=== PATIENT | male | born 1935 | race Caucasian/White ===

== ENCOUNTER → 2016-11-14 | Outpatient (CLI) | payer OTHER ==
[~2016-11-14] MED LIST: ALLO300T2 PO; ASPCH81X PO; BRIM0.2S OPB; CALC-354 PO; CHOL1TAB18 PO; CYAN10005 PO; ENOX80IN SQ; FISHOIL PO; GABA600T PO; LEVO175T3 PO; LORA-741 PO; LOSA1TAB PO; METO1TAB31 PO; OMEP20CA9 PO; SIMV20TA5 PO; TRAV0.00 OPB; WARF5TAB7 PO
== END | disposition home or self-care (01) ==
LOC: C.LABPBG 08:04
PROVIDERS: ATTEND Urology
DX: C61 Malignant neoplasm of prostate (principal); R35.0 Frequency of micturition; R39.15 Urgency of urination

== ENCOUNTER → 2016-12-22 | Outpatient (CLI) | payer OTHER ==
[~2016-12-22] MED LIST changes: +METO-478 PO; -METO1TAB31 PO; +OPTIRAY 320 IV PRN
--- NOTE | 2016-12-22 16:13 | DIAGNOSTIC IMAGING REPORT ---
(CHEST) THORAX WITH CT DOSE: HISTORY: Lymphoma LYMPHOMA TECHNIQUE: Multiaxial CT images of the chest were performed following the intravenous administration of contrast. A dose lowering technique was utilized adhering to the principles of ALARA. COMPARISON: PET scan 01/18/2014 FINDINGS: Mild chronic emphysematous and interstitial change. No well-defined focal infiltrative change. Moderate atherosclerotic change and ectasia thoracic aorta. No significant hilar or mediastinal adenopathy. Small hiatal hernia. Fatty infiltration of liver. IMPRESSION: 1. Chronic emphysematous and interstitial change. 2. No evidence for significant adenopathy. The above report was generated using voice recognition software. It may contain grammatical, syntax or spelling errors. Electronically signed by: Mehran Mi M.D. 12/22/2016 4:12 PM Dictated Date/Time: 12/22/2016 4:09 PM
--- NOTE | 2016-12-22 16:51 | DIAGNOSTIC IMAGING REPORT ---
CT SCAN OF THE ABDOMEN AND PELVIS WITH IV CONTRAST CLINICAL HISTORY: Lymphoma. COMPARISON STUDY: PET/CT dated 01/18/2014. TECHNIQUE: Following the IV administration of 116 cc of Optiray 320, CT scan of the abdomen and pelvis is performed from the lung bases to the proximal femora. Images are reviewed in the axial, sagittal, and coronal planes. IV contrast was administered without complication. A dose lowering technique was utilized adhering to the principles of ALARA. CT DOSE: 836.04 mGy.cm FINDINGS: Lung bases: The heart is top normal in size and without pericardial effusion. The coronary arteries are densely calcified. Atelectasis and/or scarring is present at both lung bases. There is no airspace consolidation or pleural effusion. There is a moderate hiatal hernia. Liver: The contrast-enhanced liver is normal in size, contour, and attenuation. There is mild intra and extrahepatic biliary ductal dilatation. The hepatic veins and portal veins are patent. Gallbladder: Surgically absent noting clips in the gallbladder fossa. Spleen: Normal in size and attenuation, measuring 9.1 cm in length. Pancreas: Coarse calcifications are noted in the pancreatic tail, and similar to the 2014 examination. The pancreas is atrophic and otherwise grossly unremarkable. Adrenal glands: Unremarkable. Kidneys: The contrast enhanced kidneys are atrophic and without hydronephrosis. The kidneys enhance symmetrically. There are at least 2 right renal calculi measuring up to 4 mm. Foci of cortical scarring are seen in the right upper pole. Bilateral renal cysts are identified. The largest is on the left and measures up to 5.6 cm. Additional subcentimeter cortical hypodensities also likely represent cysts but are too small for definitive catheterization. Abdominal vasculature: There is advanced atherosclerotic calcification of the abdominal aorta. 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 Bowel: There is mild to moderate sigmoid diverticulosis without CT evidence of acute diverticulitis. No bowel obstruction is seen. The appendix is well-visualized and normal. Peritoneum: There is no intraperitoneal free air or abdominal ascites. There is a small fat-containing umbilical hernia. Lymphadenopathy: No pathologically enlarged lymph nodes are identified in the abdomen, pelvis, or inguinal region. Prominent mesenteric lymph nodes measure up to 9 mm in short axis as seen on image #[id number]. These have not significantly changed from 2014. Pelvic viscera: The prostate gland is surgically absent. The bladder is normal as imaged. Findings suggest previous pelvic kendy dissection. Skeletal structures: The skeletal structures are osteopenic. There are bilateral pars defects at L5 with grade 1 anterolisthesis at L5-S1. There is advanced degenerative disc space narrowing at this level. Mild to moderate lumbar sacral spondylosis is seen at the remaining levels. No lytic or blastic lesions are seen. IMPRESSION: 1. No pathologically enlarged lymph nodes are identified in the abdomen or pelvis. 2. The spleen is normal in size. 3. Nonobstructing right renal calculi. 4. Colonic diverticulosis without CT evidence of acute diverticulitis. 5. Hiatal hernia. 6. Nonobstructing right renal calculi. 7. Additional findings as above. Electronically signed by: Shai Boateng M.D. 12/22/2016 4:50 PM Dictated Date/Time: 12/22/2016 4:42 PM
== END | disposition home or self-care (01) ==
LOC: C.CTS 15:39
PROVIDERS: ATTEND Nurse Practitioner Family
DX: C82.21 Follicular lymphoma grade III, unspecified, lymph nodes of head, face, and neck (principal)

== ENCOUNTER 2020-10-25 19:10 | Inpatient (IN) ==
--- NOTE | 2020-10-25 20:37 | XRay Report ---
XR chest 1V portable HISTORY: 85 years-old Male weakness acute weakness COMPARISON: Chest CT 12/22/2016, PET CT 01/18/2014, chest radiograph 09/12/2013 TECHNIQUE: Portable AP view of the chest FINDINGS: Cardiac silhouette is enlarged. Emphysema. Mild left greater than right bibasilar densities. No pneum othorax, large pleural effusion or overt pulmonary edema. Cholecystectomy. Degenerative changes of th e shoulders and spine. IMPRESSION: 1. Cardiac megaly without pulmonary edema. 2. Mild linear left greater than right bibasilar densities suggestive of probable atelectasis. ACT 112: Negative or not required by law. The above report was generated using voice recognition software. It may contain grammatical, syntax o r spelling errors. Electronically signed by: Jean-Claude Rojas M.D. 10/25/2020 8:36 PM
[2020-10-25 20:48] LABS: Basophils # (auto) 0.01 K/uL (0-0.2); Basophils % (auto) 0.1 %; Eosinophils # (auto) 0.12 K/uL (0-0.5); Eosinophils % (auto) 1.6 %; Hematocrit (blood only) 35.9 % (42-52); Hemoglobin 12.5 g/dL (14.0-18.0); Immature Granulocytes # (auto) 0.01 K/uL (0.00-0.02); Immature Granulocytes % (auto) 0.1 %; Lymphocytes # (auto) 2.31 K/uL (1.2-3.4); Lymphocytes % (auto) 30.7 %; Mean Corpuscular Hemoglobin 34.3 pg (25-34); Mean Corpuscular Hgb Conc 34.8 g/dL (32-36); Mean Corpuscular Volume 98.6 fL (80-100); Mean Platelet Volume 10.5 fL (7.4-10.4); Monocytes # (auto) 0.73 K/uL (0.11-0.59); Monocytes % (auto) 9.7 %; Neutrophils # (auto) 4.34 K/uL (1.4-6.5); Neutrophils % (auto) 57.8 %; Platelet Count 194 K/uL (130-400); RDW Standard Deviation 49.9 fL (36.4-46.3); Red Blood Count 3.64 M/uL (4.7-6.1); White Blood Count 7.52 K/uL (4.8-10.8)
[2020-10-25 21:00] LABS: Albumin Level 3.3 gm/dl (3.4-5.0); BUN Creatinine Ratio 16.8 (10-20); Calcium 8.9 mg/dl (8.5-10.1); Creatinine Clr Calc Pharmacy 43.2 ml/min; Est GFR (African American) 61.8 ml/min; Est GFR (Non-African American) 53.4 ml/min
[2020-10-25 21:09] LABS: Bilirubin,Total 0.5 mg/dl (0.2-1); Globulin 3.2 gm/dl (2.5-4.0); Thyroid Stimulating Hormone 0.415 uIu/ml (0.300-4.500); Total Protein 6.5 gm/dl (6.4-8.2)
--- NOTE | 2020-10-25 21:11 | CT Scan Report ---
CT head/brain wo con CLINICAL HISTORY: 85 years-old Male with Fall, on coumadin. Acute head injury status post fall TECHNIQUE: Multiple axial CT images of the head were obtained without contrast. A dose lowering tech nique was utilized adhering to the principles of ALARA. CT DOSE: 537.48 mGy.cm COMPARISON: None. FINDINGS: No acute intracranial hemorrhage, midline shift, intracranial mass, hydrocephalus, territorial ischem ia or abnormal extra-axial collection. Age-related involutional changes. White matter hypodensities s uggestive of chronic microvascular ischemic disease. Cerebral vascular calcifications. Senescent calc ifications of the basal ganglia. No acute calvarial fracture. Postoperative changes of the left lobe. Large left and small right mast oid effusion. The paranasal sinuses appear clear. Prior bilateral cataract repair. IMPRESSION: 1. No acute intracranial abnormality. 2. Left greater than right mastoid effusions. ACT 112: Negative or not required by law. The above report was generated using voice recognition software. It may contain grammatical, syntax o r spelling errors. Electronically signed by: Jean-Claude Rojas M.D. 10/25/2020 9:10 PM
[2020-10-25 21:25] LABS: Appearance Urine Clear (Clear); Bacteria Urine Automated Negative (Negative); Bilirubin Urine Negative (Negative); Blood Urine Trace (Negative); Cast Urine Automated 0 /lpf (0-5); Color Urine Yellow; Glucose Urine UA Negative (Negative); Ketones Urine Negative (Negative); Leukocyte Esterase Urine Negative (Negative); Nitrite Urine Negative (Negative); Protein Urine Negative (Negative); RBC Urine Automated 0-4 /hpf (0-4); Specific Gravity Urine 1.017 (1.000-1.030); Urobilinogen Urine Negative (Negative)
[2020-10-25 22:00] LABS: Potassium 3.9 mmol/L (3.5-5.1)
[2020-10-25 22:05] LABS: Magnesium 1.7 mg/dl (1.8-2.4)
[2020-10-25] MEDS ORDERED: METOPROLOL SUCC 25MG EXT REL TAB PO STA (22:07)
--- NOTE | 2020-10-25 22:13 | Emergency Department Note ---
Impression & Plan Confusion, Hallucinations, Lewy body dementia, Fall, Anticoagulated, Contusion of flank ED Provider Note INFORMANT: Patient, family ED PROVIDER(S): Emanuel Rivera MD CHIEF COMPLAINT: Falls PLAN: Disposition: Admitted Condition: Good Outpatient prescription management: none Referral: None MEDICAL DECISION MAKING: Patient has presented because of multiple falls. Family does not believe he is safe at home. He is also had increased confusion and hallucinations. A work-up was initiated. Head CT was negative. The patient had an unremarkable ECG. CT scan did reveal some fluid in the mastoids but no sign of intracranial bleeding. The patient is anticoagulated. CBC and chemistries are unremarkable. Chest x- ray and urinalysis were unremarkable. The patient denied any pain on history and physical examination only revealed a left flank bruising. He had no tenderness in the abdomen, ribs, or in the flank. Due to the multiple falls and concerns for safety with the change in mental status further management in the hospital was felt to be appropriate. Consultation was made with Dr. Fred Barrios, [facility] hospitalist service. Triage Nursing notes reviewed and agree them. Vital Signs: reviewed and remarkable for no significant abnormalities Differential diagnosis: Infection, hypoglycemia, electrolyte abnormalities, overdose, toxicologic, cardiac sources, intracerebral event, neurologic, trauma, as well as other pathologies. Diagnostics interpreted by me: ECG: Twelve-lead ECG revealed normal sinus rhythm at 75 bpm. Left anterior fascicular block present. LVH. No ST elevation or depression. Cardiac Monitoring: Cardiac monitoring ordered by me: The patient was placed on continuous cardiac monitoring and observed. It revealed a normal sinus rhythm at 86 beats per minute without ectopy or evidence of dysrhythmia. Imaging studies: Head CT: A noncontrast CT scan of the head was performed and was negative for tumor, fracture, intracranial hemorrhage, or other acute pathology Chest x-ray. Findings: A chest x-ray was performed and revealed no pneumothorax, effusion, infiltrate, pulmonary edema, free air under the diaphragm, or wide mediastinum. Impression: No acute disease.. HPI: The patient is a 85 year old male who presents to the Emergency Room with complaints of multiple falls. Family also notes he has been having confusion and hallucinating. This started over the last several days and is recurring. The patient also notes the following associated symptoms, mild weakness, a bruise on his left flank but no pain. The patient has taken no medication for relieving factors. Current pain is rated as 0/10. Patient's and family are concerned about his ability to be at home. He keeps falling. He had several falls today. The patient has a history of Lewy body dementia. He has had problems with confusion and hallucinations in the past. It seems to be more pronounced today. Pt denies LOC, headache, fevers, chills, diaphoresis, visual changes, neck pain, chest pain, breathing difficulties, nausea, vomiting, abdominal pain, back pain, melena, hematochezia, urinary symptoms, numbness, lymphadenopathy, rash, or other complaints. ROS: See above HPI for pertinent positives & negatives. A total of 10 systems reviewed and were otherwise negative. PAST MEDICAL HISTORY:See Below , Lewy body dementia, lymphoma, A. fib PAST SURGICAL HISTORY:See Below, FAMILY HISTORY:See Below SOCIAL HISTORY:See Below, HOME MEDICATIONS:See Below ALLERGIES:See Below VITALS:See Below PHYSICAL EXAMINATION: GENERAL: Awake, alert, iyn-heoouabcrqk-gfjaqzgnl, in no distress HENT: Normocephalic, atraumatic. Oropharynx unremarkable. EYES: Normal conjunctiva. Sclera non-icteric. NECK: Inspection normal. Non-tender. Supple. No nuchal rigidity. FROM. No masses. RESPIRATORY: Clear to auscultation. No wheezes. No rales. Normal respiratory effort. CARDIAC: Normal rate. Normal rhythm. No murmurs. No rubs. Extremities warm and well perfused. Pulses equal. No JVD. GI: Soft, non-distended. No tenderness to palpation. No rebound or guarding. No masses. RECTAL: Deferred. MUSCULOSKELETAL: Atraumatic. Chest examination reveals no tenderness. The back is symmetrical on inspection without obvious abnormality. There is no CVA tenderness to palpation. No joint edema. LOWER EXTREMITIES: Calves are equal size bilaterally and non-tender. No edema. No discoloration. NEURO: Normal sensorium. No sensory or motor deficits noted. SKIN: No rash or jaundice noted. Emnauel Rivera MD Past Med/Surg History Social History Smoking Status: Never smoker Preferred Language: Rw[place] Feels Safe at Home: Yes Allergies Allergies Allergy/AdvReac Type Severity Reaction Status Date / Time Sulfa (Sulfonamide Allergy Mild RASH TO Verified 10/25/20 21:25 Antibiotics) "SULFA DRUGS" Home Meds Home Medications Medication Instructions Recorded Confirmed allopurinol 100 mg tablet 100 mg PO DAILY 10/25/20 10/25/20 allopurinol 300 mg tablet 300 mg PO DAILY 10/25/20 10/25/20 brimonidine 0.2 %-timolol 0.5 % 1 drp OPHTHALMIC (EYE) BID 10/25/20 10/25/20 eye drops (Combigan) gabapentin 600 mg tablet 600 mg PO TID 10/25/20 10/25/20 levetiracetam 500 mg tablet 500 mg PO BID 10/25/20 10/25/20 levothyroxine 175 mcg tablet 175 mcg PO DAILYBB 10/25/20 10/25/20 metoprolol succinate 25 mg 25 mg PO DAILY 10/25/20 10/25/20 tablet,extended release 24 hr omeprazole 20 mg capsule,delayed 20 mg PO DAILYBB 10/25/20 10/25/20 release sertraline 50 mg tablet 50 mg PO DAILY 10/25/20 10/25/20 simvastatin 20 mg tablet 20 mg PO HS 10/25/20 10/25/20 travoprost 0.004 % eye drops 1 drp OPB PM 10/25/20 10/25/20 (Travatan Z) warfarin 3 mg tablet See Rx Instructions .ROUTE .COMPLEX 10/25/20 10/25/20 Results & Data (ED) Vital Signs Vital Signs - 24 hr 10/25/20 19:43 10/25/20 21:06 10/25/20 21:50 Temperature 37.2 C Temperature Source Oral Pulse Rate 76 Pulse Rate [Brachial] 79 86 Respiratory Rate 24 20 20 Blood Pressure 131/68 Blood Pressure [Right Arm] 171/75 H 142/76 H Blood Pressure Mean 89 Blood Pressure Mean [Right Arm] 107 98 Pulse Oximetry 96 96 98 Oxygen Delivery Method Room Air Room Air Room Air Sepsis Recent Fever Within 48 Hours No Sepsis New/Unexplained Change in Mental Status Yes Sepsis Action Taken by Nursing No Action Required Laboratory Data Result diagrams: 10/25/20 18:45 10/25/20 21:26 Lab Results 10/25/20 10/25/20 10/25/20 Range/Units 18:45 18:45 18:45 WBC 7.52 (4.8-10.8) K/uL RBC 3.64 L (4.7-6.1) M/uL Hgb 12.5 L (14.0-18.0) g/dL Hct 35.9 L (42-52) % MCV 98.6 (80-100) fL MCH 34.3 H (25-34) pg MCHC 34.8 (32-36) g/dL RDW Std Deviation 49.9 H (36.4-46.3) fL RDW Coeff of Kimberly 14.0 (11.5-14.5) % Plt Count 194 (130-400) K/uL MPV 10.5 H (7.4-10.4) fL Immature Gran % (Auto) 0.1 % Neut % (Auto) 57.8 % Lymph % (Auto) 30.7 % Monona % (Auto) 9.7 % Eos % (Auto) 1.6 % Baso % (Auto) 0.1 % Neut # (Auto) 4.34 (1.4-6.5) K/uL Lymph # (Auto) 2.31 (1.2-3.4) K/uL Monona # (Auto) 0.73 H (0.11-0.59) K/uL Eos # (Auto) 0.12 (0-0.5) K/uL Baso # (Auto) 0.01 (0-0.2) K/uL Immature Gran # (Auto) 0.01 (0.00-0.02) K/uL PT 28.0 H (9.0-12.0) Seconds INR 3.0 H (0.9-1.1) Sodium 138 (136-145) mmol/L Potassium (3.5-5.1) mmol/L Chloride 107 (98-107) mmol/L Carbon Dioxide 26 (21-32) mmol/L Anion Gap 5.0 (3-11) BUN 21 H (7-18) mg/dl Creatinine 1.22 (0.6-1.4) mg/dl Est Cr Clr Drug Dosing 43.2 ml/min Est GFR ( Amer) 61.8 ml/min Est GFR (Non-Af Amer) 53.4 ml/min BUN/Creatinine Ratio 16.8 (10-20) Glucose 102 H (70-99) mg/dl Calcium 8.9 (8.5-10.1) mg/dl Magnesium (1.8-2.4) mg/dl Total Bilirubin 0.5 (0.2-1) mg/dl AST (15-37) U/L ALT 55 (12-78) U/L Alkaline Phosphatase 85 (45-117) U/L Total Protein 6.5 (6.4-8.2) gm/dl Albumin 3.3 L (3.4-5.0) gm/dl Globulin 3.2 (2.5-4.0) gm/dl Albumin/Globulin Ratio 1.0 (0.9-2) TSH 0.415 (0.300-4.500) uIu/ml Urine Color Urine Appearance (Clear) Urine pH (4.5-7.5) Ur Specific Asher (1.000-1.030) Urine Protein (Negative) Urine Glucose (UA) (Negative) Urine Ketones (Negative) Urine Blood (Negative) Urine Nitrite (Negative) Urine Bilirubin (Negative) Urine Urobilinogen (Negative) Ur Leukocyte Esterase (Negative) Urine WBC (Auto) (0-5) /hpf Urine RBC (Auto) (0-4) /hpf U Hyaline Cast (Auto) (0-5) /lpf U Epithel Cells (Auto) (0-5) /lpf Urine Bacteria (Auto) (Negative) COVID-19 Eval Order 10/25/20 10/25/20 10/25/20 Range/Units 20:30 21:10 21:26 WBC (4.8-10.8) K/uL RBC (4.7-6.1) M/uL Hgb (14.0-18.0) g/dL Hct (42-52) % MCV (80-100) fL MCH (25-34) pg MCHC (32-36) g/dL RDW Std Deviation (36.4-46.3) fL RDW Coeff of Kimberly (11.5-14.5) % Plt Count (130-400) K/uL MPV (7.4-10.4) fL Immature Gran % (Auto) % Neut % (Auto) % Lymph % (Auto) % Monona % (Auto) % Eos % (Auto) % Baso % (Auto) % Neut # (Auto) (1.4-6.5) K/uL Lymph # (Auto) (1.2-3.4) K/uL Monona # (Auto) (0.11-0.59) K/uL Eos # (Auto) (0-0.5) K/uL Baso # (Auto) (0-0.2) K/uL Immature Gran # (Auto) (0.00-0.02) K/uL PT (9.0-12.0) Seconds INR (0.9-1.1) Sodium (136-145) mmol/L Potassium 3.9 (3.5-5.1) mmol/L Chloride (98-107) mmol/L Carbon Dioxide (21-32) mmol/L Anion Gap (3-11) BUN (7-18) mg/dl Creatinine (0.6-1.4) mg/dl Est Cr Clr Drug Dosing ml/min Est GFR ( Amer) ml/min Est GFR (Non-Af Amer) ml/min BUN/Creatinine Ratio (10-20) Glucose (70-99) mg/dl Calcium (8.5-10.1) mg/dl Magnesium 1.7 L (1.8-2.4) mg/dl Total Bilirubin (0.2-1) mg/dl AST 40 H (15-37) U/L ALT (12-78) U/L Alkaline Phosphatase (45-117) U/L Total Protein (6.4-8.2) gm/dl Albumin (3.4-5.0) gm/dl Globulin (2.5-4.0) gm/dl Albumin/Globulin Ratio (0.9-2) TSH (0.300-4.500) uIu/ml Urine Color Yellow Urine Appearance Clear (Clear) Urine pH 6.0 (4.5-7.5) Ur Specific Asher 1.017 (1.000-1.030) Urine Protein Negative (Negative) Urine Glucose (UA) Negative (Negative) Urine Ketones Negative (Negative) Urine Blood Trace H (Negative) Urine Nitrite Negative (Negative) Urine Bilirubin Negative (Negative) Urine Urobilinogen Negative (Negative) Ur Leukocyte Esterase Negative (Negative) Urine WBC (Auto) 1-5 (0-5) /hpf Urine RBC (Auto) 0-4 (0-4) /hpf U Hyaline Cast (Auto) 0 (0-5) /lpf U Epithel Cells (Auto) 5-10 H (0-5) /lpf Urine Bacteria (Auto) Negative (Negative) COVID-19 Eval Order Covid19 at [facility] Imaging Data Radiologist's Impression: Chest X-Ray 10/25/20 19:53 XR chest 1V portable HISTORY: 85 years-old Male weakness acute weakness COMPARISON: Chest CT 12/22/2016, PET CT 01/18/2014, chest radiograph 09/12/2013 TECHNIQUE: Portable AP view of the chest FINDINGS: Cardiac silhouette is enlarged. Emphysema. Mild left greater than right bibasilar densities. No pneumothorax, large pleural effusion or overt pulmonary edema. Cholecystectomy. Degenerative changes of the shoulders and spine. IMPRESSION: 1. Cardiac megaly without pulmonary edema. 2. Mild linear left greater than right bibasilar densities suggestive of probable atelectasis. ACT 112: Negative or not required by law. The above report was generated using voice recognition software. It may contain grammatical, syntax or spelling errors. Electronically signed by: Jean-Claude Rojas M.D. 10/25/2020 8:[address] 10/25/20 19:53 CT head/brain wo con CLINICAL HISTORY: 85 years-old Male with Fall, on coumadin. Acute head injury status post fall TECHNIQUE: Multiple axial CT images of the head were obtained without contrast. A dose lowering technique was utilized adhering to the principles of ALARA. CT DOSE: 537.48 mGy.cm COMPARISON: None. FINDINGS: No acute intracranial hemorrhage, midline shift, intracranial mass, hydrocephalus, territorial ischemia or abnormal extra-axial collection. Age- related involutional changes. White matter hypodensities suggestive of chronic microvascular ischemic disease. Cerebral vascular calcifications. Senescent calcifications of the basal ganglia. No acute calvarial fracture. Postoperative changes of the left lobe. Large left and small right mastoid effusion. The paranasal sinuses appear clear. Prior bilateral cataract repair. IMPRESSION: 1. No acute intracranial abnormality. 2. Left greater than right mastoid effusions. ACT 112: Negative or not required by law. The above report was generated using voice recognition software. It may contain grammatical, syntax or spelling errors. Electronically signed by: Jean-Claude Rojas M.D. 10/25/2020 9:10 PM Discharge Plan Visit Data Chief Complaint: Fall ED Provider: Emanuel Rivera Discharge Problem: Confusion, Hallucinations, Lewy body dementia, Fall, Anticoagulated, Contusion of flank Forms Stand Alone Forms: My [facility] [place] [facility] Prescriptions Prescriptions: No Action levothyroxine 175 mcg tablet 175 mcg PO DAILYBB RF: 0 gabapentin 600 mg tablet 600 mg PO TID RF: 0 levetiracetam 500 mg tablet 500 mg PO BID RF: 0 travoprost [Travatan Z] 0.004 % Drops 1 drp OPB PM RF: 0 allopurinol 100 mg Tablet 100 mg PO DAILY RF: 0 warfarin 3 mg Tablet See Rx Instructions .ROUTE .COMPLEX RF: 0 simvastatin 20 mg Tablet 20 mg PO HS RF: 0 omeprazole 20 mg Capsule,Delayed Release(Dr/Ec) 20 mg PO DAILYBB RF: 0 allopurinol 300 mg tablet 300 mg PO DAILY RF: 0 metoprolol succinate 25 mg tablet extended release 24 hr 25 mg PO DAILY RF: 0 Combigan 0.2-0.5 % Drops 1 drp OPHTHALMIC (EYE) BID RF: 0 sertraline 50 mg tablet 50 mg PO DAILY RF: 0 Referrals Referrals: Khloe Epperson MD [Primary Care Provider] -
--- NOTE | 2020-10-25 22:53 | History & Physical Report ---
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 Risks of continuing oral anticoagulation at home given recurrent falls may need to be discussed with family if patient to return home. DVT prophylaxis. SCDs if INR less than 2 while Coumadin on hold RE cutaneous bleed Full code as per family. Patient's daughter requesting updates from providers. Ms. Beto Malin, contact #[phone]. Text document was generated using [employer] voice recognition software. It may contain grammatical or spelling errors. Kindly contact undersigned for clarification of any documentation item in question. History of Present Illness Chief Complaint: Recurrent falls as per family Where am I as per patient Primary Care Provider: Khloe Motta MD History obtained from patient, family, and records. Limited history from patient secondary to dementia and hearing impairment. 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 Patient has had 3 witnessed falls at home secondary to unsteady gait as per family since last week. No witnessed seizures as per family. Patient a little more confused than usual. Patient denies chest pain, S OB, headache symptoms. Bruising on left flank noted. Patient brought to the ER for evaluation by family. Medical History as above Surgical History : Carpal tunnel surgery, vascular procedure, laser trabeculoplasty, cataract surgeries, cholecystectomy, vitrectomy/scleral buckling, inguinal hernia repair Family History : Dementia, DM, heart disease, seizure disorder Personal/Social history : Non-smoker, no EtOH intake, lives with Allergies Allergy/AdvReac Type Severity Reaction Status Date / Time Sulfa (Sulfonamide Allergy Mild RASH TO Verified 10/25/20 21:25 Antibiotics) "SULFA DRUGS" Home Medications Medication Instructions Recorded Confirmed Type allopurinol 100 mg tablet 100 mg PO DAILY 10/25/20 10/25/20 History allopurinol 300 mg tablet 300 mg PO DAILY 10/25/20 10/25/20 History brimonidine 0.2 %-timolol 0.5 % 1 drp OPHTHALMIC (EYE) BID 10/25/20 10/25/20 History eye drops (Combigan) gabapentin 600 mg tablet 600 mg PO TID 10/25/20 10/25/20 History levetiracetam 500 mg tablet 500 mg PO BID 10/25/20 10/25/20 History levothyroxine 175 mcg tablet 175 mcg PO DAILYBB 10/25/20 10/25/20 History metoprolol succinate 25 mg 25 mg PO DAILY 10/25/20 10/25/20 History tablet,extended release 24 hr omeprazole 20 mg capsule,delayed 20 mg PO DAILYBB 10/25/20 10/25/20 History release sertraline 50 mg tablet 50 mg PO DAILY 10/25/20 10/25/20 History simvastatin 20 mg tablet 20 mg PO HS 10/25/20 10/25/20 History travoprost 0.004 % eye drops 1 drp OPB PM 10/25/20 10/25/20 History (Travatan Z) warfarin 3 mg tablet See Rx Instructions .ROUTE .COMPLEX 10/25/20 10/25/20 History Past Med/Surg History Social History Smoking Status: Never smoker Second Hand Exposure: No; Do You Dip or Chew Tobacco: No; Hx Alcohol Use: No Hx Substance Use: No Preferred Language: Chadian Communication Ability: Effective Special Officer Required: No Beliefs That Will Affect Care: None Current Living Situation: Spouse Other Information That Helps Us Care for You: No Feels Safe at Home: Yes Safety Concerns: Feels Safe At This Time Assistive Devices: Denture - Upper, Denture - Lower, Glasses and Hearing Aid - Right Review of Systems Review of Systems: Could not be reliably obtained Physical Exam Physical Exam: GENERAL: Demented, comfortable, pleasant, slightly hard of hearing, no respiratory distress, grasping for objects invisible to examiner SKIN: Pallor , warm HEENT: Alopecia, bespectacled, pale palpebral conjunctivae, L ptosis (chronic as per family), dry buccal mucosa NECK : Supple, no tenderness CHEST : CTA, no tenderness HEART : RRR, no obvious murmurs ABDOMEN: Some distention, nontender BACK : Tender ecchymosis left flank, negative straight leg raise test EXTREMITIES : No LE swelling/tenderness, no other conspicuous deformities noted NEUROLOGIC : demented, no facial asymmetry, slightly hard of hearing, no other gross focality Results & Data Results & Data ([facility]) Vital Signs (Past 12 Hours) Vital Signs Temp Pulse Pulse Resp BP BP Pulse Ox 10/25/20 21:50 86 20 142/76 H 98 10/25/20 21:06 79 20 171/75 H 96 10/25/20 19:43 37.2 C 76 24 131/68 96 Laboratory Results Laboratory Results WBC 7.52 K/uL (4.8-10.8) 10/25/20 18:45 RBC 3.64 M/uL (4.7-6.1) L 10/25/20 18:45 Hgb 12.5 g/dL (14.0-18.0) L 10/25/20 18:45 Hct 35.9 % (42-52) L 10/25/20 18:45 MCV 98.6 fL (80-100) 10/25/20 18:45 MCH 34.3 pg (25-34) H 10/25/20 18:45 MCHC 34.8 g/dL (32-36) 10/25/20 18:45 RDW Std Deviation 49.9 fL (36.4-46.3) H 10/25/20 18:45 RDW Coeff of Kimberly 14.0 % (11.5-14.5) 10/25/20 18:45 Plt Count 194 K/uL (130-400) 10/25/20 18:45 MPV 10.5 fL (7.4-10.4) H 10/25/20 18:45 Immature Gran % (Auto) 0.1 % 10/25/20 18:45 Neut % (Auto) 57.8 % 10/25/20 18:45 Lymph % (Auto) 30.7 % 10/25/20 18:45 [place] % (Auto) 9.7 % 10/25/20 18:45 Eos % (Auto) 1.6 % 10/25/20 18:45 Baso % (Auto) 0.1 % 10/25/20 18:45 Neut # (Auto) 4.34 K/uL (1.4-6.5) 10/25/20 18:45 Lymph # (Auto) 2.31 K/uL (1.2-3.4) 10/25/20 18:45 [place] # (Auto) 0.73 K/uL (0.11-0.59) H 10/25/20 18:45 Eos # (Auto) 0.12 K/uL (0-0.5) 10/25/20 18:45 Baso # (Auto) 0.01 K/uL (0-0.2) 10/25/20 18:45 Immature Gran # (Auto) 0.01 K/uL (0.00-0.02) 10/25/20 18:45 PT 28.0 Seconds (9.0-12.0) H 10/25/20 18:45 INR 3.0 (0.9-1.1) H 10/25/20 18:45 Sodium 138 mmol/L (136-145) 10/25/20 18:45 Potassium 3.9 mmol/L (3.5-5.1) 10/25/20 21:26 Chloride 107 mmol/L (98-107) 10/25/20 18:45 Carbon Dioxide 26 mmol/L (21-32) 10/25/20 18:45 Anion Gap 5.0 (3-11) 10/25/20 18:45 BUN 21 mg/dl (7-18) H 10/25/20 18:45 Creatinine 1.22 mg/dl (0.6-1.4) 10/25/20 18:45 Est Cr Clr Drug Dosing 43.2 ml/min 10/25/20 18:45 Est GFR ( Amer) 61.8 ml/min 10/25/20 18:45 Est GFR (Non-Af Amer) 53.4 ml/min 10/25/20 18:45 BUN/Creatinine Ratio 16.8 (10-20) 10/25/20 18:45 Glucose 102 mg/dl (70-99) H 10/25/20 18:45 Calcium 8.9 mg/dl (8.5-10.1) 10/25/20 18:45 Magnesium 1.7 mg/dl (1.8-2.4) L 10/25/20 21:26 Total Bilirubin 0.5 mg/dl (0.2-1) 10/25/20 18:45 AST 40 U/L (15-37) H 10/25/20 21:26 ALT 55 U/L (12-78) 10/25/20 18:45 Alkaline Phosphatase 85 U/L (45-117) 10/25/20 18:45 Total Protein 6.5 gm/dl (6.4-8.2) 10/25/20 18:45 Albumin 3.3 gm/dl (3.4-5.0) L 10/25/20 18:45 Globulin 3.2 gm/dl (2.5-4.0) 10/25/20 18:45 Albumin/Globulin Ratio 1.0 (0.9-2) 10/25/20 18:45 TSH 0.415 uIu/ml (0.300-4.500) 10/25/20 18:45 Urine Color Yellow 10/25/20 21:10 Urine Appearance Clear (Clear) 10/25/20 21:10 Urine pH 6.0 (4.5-7.5) 10/25/20 21:10 Ur Specific [place] 1.017 (1.000-1.030) 10/25/20 21:10 Urine Protein Negative (Negative) 10/25/20 21:10 Urine Glucose (UA) Negative (Negative) 10/25/20 21:10 Urine Ketones Negative (Negative) 10/25/20 21:10 Urine Blood Trace (Negative) H 10/25/20 21:10 Urine Nitrite Negative (Negative) 10/25/20 21:10 Urine Bilirubin Negative (Negative) 10/25/20 21:10 Urine Urobilinogen Negative (Negative) 10/25/20 21:10 Ur Leukocyte Esterase Negative (Negative) 10/25/20 21:10 Urine WBC (Auto) 1-5 /hpf (0-5) 10/25/20 21:10 Urine RBC (Auto) 0-4 /hpf (0-4) 10/25/20 21:10 U Hyaline Cast (Auto) 0 /lpf (0-5) 10/25/20 21:10 U Epithel Cells (Auto) 5-10 /lpf (0-5) H 10/25/20 21:10 Urine Bacteria (Auto) Negative (Negative) 10/25/20 21:10 COVID-19 Eval Order Covid19 at [facility] 10/25/20 20:30 SARS-CoV-2 (PCR) NEGATIVE (Negative) 10/25/20 21:10 Impressions Chest X-Ray 10/25/20 19:53 XR chest 1V portable HISTORY: 85 years-old Male weakness acute weakness COMPARISON: Chest CT 12/22/2016, PET CT 01/18/2014, chest radiograph 09/12/2013 TECHNIQUE: Portable AP view of the chest FINDINGS: Cardiac silhouette is enlarged. Emphysema. Mild left greater than right bibasilar densities. No pneumothorax, large pleural effusion or overt pulmonary edema. Cholecystectomy. Degenerative changes of the shoulders and spine. IMPRESSION: 1. Cardiac megaly without pulmonary edema. 2. Mild linear left greater than right bibasilar densities suggestive of probable atelectasis. ACT 112: Negative or not required by law. The above report was generated using voice recognition software. It may contain grammatical, syntax or spelling errors. Electronically signed by: Jean-Claude Rojas M.D. 10/25/2020 8:[address] 10/25/20 19:53 CT head/brain wo con CLINICAL HISTORY: 85 years-old Male with Fall, on coumadin. Acute head injury status post fall TECHNIQUE: Multiple axial CT images of the head were obtained without contrast. A dose lowering technique was utilized adhering to the principles of ALARA. CT DOSE: 537.48 mGy.cm COMPARISON: None. FINDINGS: No acute intracranial hemorrhage, midline shift, intracranial mass, hydrocephalus, territorial ischemia or abnormal extra-axial collection. Age- related involutional changes. White matter hypodensities suggestive of chronic microvascular ischemic disease. Cerebral vascular calcifications. Senescent calcifications of the basal ganglia. No acute calvarial fracture. Postoperative changes of the left lobe. Large left and small right mastoid effusion. The paranasal sinuses appear clear. Prior bilateral cataract repair. IMPRESSION: 1. No acute intracranial abnormality. 2. Left greater than right mastoid effusions. ACT 112: Negative or not required by law. The above report was generated using voice recognition software. It may contain grammatical, syntax or spelling errors. Electronically signed by: Jean-Claude Rojas M.D. 10/25/2020 9:10 PM Diagnostic Findings EKG as per my interpretation : Rate 75, NSR, LAD, LAFB, LVH, T wave abnormalities inferior leads Code Status & VTE Plan VTE Prophylaxis Plan VTE Prophylaxis will be ordered: Yes
[2020-10-25 23:41] LABS: Hematocrit (blood only) 37.9 % (42-52)
[2020-10-26] MEDS ORDERED: NSS + 20MEQ KCL 20 MEQ/1,000 ML BAG IV ONE (00:41)
[2020-10-26] MEDS ORDERED: PROMETHAZINE HCL 6.25 MG in SODIUM CHLORIDE 0.9% 50 ML IV PRN (00:41)
[2020-10-26] MEDS ORDERED: MAGNESIUM SULFATE / D5W 1 GM/100 ML BAG IV ONE (00:41)
[2020-10-26] MEDS ORDERED: PHYTONADIONE 5 MG TAB PO STA (00:54)
[2020-10-26] MEDS: TRAVOPROST Z 0.004% OPH SOLN 2.5 ML BTL OPB SCH ×2 (01:37→20:11)
[2020-10-26] MEDS: levETIRAcetam 500 MG TAB PO SCH ×3 (01:38→20:10)
[2020-10-26] MEDS ORDERED: OLANZapine 10 MG/2.1 ML SDV IM STA (05:42)
[2020-10-26] MEDS: LEVOTHYROXINE SODIUM 175 MCG TABLET PO SCH (06:03)
[2020-10-26] MEDS: PANTOprazole 40 MG TAB PO SCH (06:03)
--- NOTE | 2020-10-26 07:23 | CT Scan Report ---
CT abd pelvis wo con CLINICAL INDICATION: MN ^L flank ecchymosis. TECHNIQUE: Helical axial images of the abdomen and pelvis were obtained and displayed at 5 and 1 mm i ntervals. Automated dose lowering techniques and/or adjustment according to patient size were utilize d for this exam. This exam was performed with intravenous contrast. COMPARISON: None available at the time of this dictation. FINDINGS: Evaluation is limited by patient motion and positioning. Lower chest: Thyromegaly is noted. There is calcification about the aortic valve and visualized chris nary arteries. Bilateral dependent atelectasis is seen. Liver: Unremarkable. No focal lesions are seen. Gallbladder and biliary tree: Patient is status post cholecystectomy. Bile duct measures 16 mm, uncha nged and likely physiologic in this patient status post cholecystectomy. Pancreas: Fatty replacement of the pancreas is seen. Spleen: Unremarkable. Adrenals: Unremarkable. Kidneys and ureters: Nonobstructive nephrolithiasis is noted on the right. There is a left inferior p ole cyst measuring 30 mm, decreased from the prior exam. Additional smaller cysts are seen bilaterall y. Bowel: A hiatal hernia is seen. Evaluation is limited by motion and streak artifact but there is agai n suggestion of diverticulosis without evidence of diverticulitis. Lymph nodes Retroperitoneal: Unremarkable. Mesenteric: Subcentimeter lymph nodes are noted. Pelvic: Unremarkable. Bladder: Unremarkable. Reproductive organs: Status post prostatectomy. Peritoneum: Normal Vessels: Atherosclerotic calcifications are seen. Tiny abdominal aortic aneurysm measures 28 x 24 mm, unchanged from prior exam. Abdominal wall: Mild soft tissue stranding in the left flank region likely corresponding to the anast omosis on physical exam. Bones: Degenerative changes in the visualized spine. Bilateral pars defect at L5. IMPRESSION: 1. Mild soft tissue stranding in the left flank without acute fracture or other acute abnormalities. 2. Additional findings as above. ACT 112: Negative or not required by law. Electronically signed by: Karel Aponte M.D. 10/26/2020 7:21 AM
[2020-10-26] MEDS: SERTRALINE HCL 50 MG TABLET PO SCH (08:17)
[2020-10-26] MEDS: allopurinoL 100 MG TAB PO SCH (08:17)
[2020-10-26] MEDS: METOPROLOL SUCC 25MG EXT REL TAB PO SCH (08:18)
[2020-10-26] MEDS: allopurinoL 300 MG TAB PO SCH (08:18)
[2020-10-26 08:21] LABS: Basophils # (auto) 0.01 K/uL (0-0.2); Basophils % (auto) 0.1 %; Eosinophils # (auto) 0.11 K/uL (0-0.5); Eosinophils % (auto) 1.5 %; Hematocrit (blood only) 38.6 % (42-52); Hemoglobin 13.3 g/dL (14.0-18.0); Immature Granulocytes # (auto) 0.01 K/uL (0.00-0.02); Immature Granulocytes % (auto) 0.1 %; Lymphocytes # (auto) 2.49 K/uL (1.2-3.4); Lymphocytes % (auto) 33.6 %; Mean Corpuscular Hemoglobin 34.5 pg (25-34); Mean Corpuscular Hgb Conc 34.5 g/dL (32-36); Mean Platelet Volume 10.3 fL (7.4-10.4); Monocytes % (auto) 9.4 %; Neutrophils # (auto) 4.09 K/uL (1.4-6.5); Neutrophils % (auto) 55.3 %; Platelet Count 207 K/uL (130-400); RDW Coefficient of Variation 13.8 % (11.5-14.5); RDW Standard Deviation 50.2 fL (36.4-46.3); Red Blood Count 3.86 M/uL (4.7-6.1); White Blood Count 7.41 K/uL (4.8-10.8)
[2020-10-26 08:31] LABS: Prothrombin Time 19.3 Seconds (9.0-12.0)
[2020-10-26 09:04] LABS: BUN Creatinine Ratio 16.5 (10-20); Calcium 9.2 mg/dl (8.5-10.1); Creatinine Clr Calc Pharmacy 49.2 ml/min; Est GFR (African American) 72.5 ml/min; Est GFR (Non-African American) 62.5 ml/min; Magnesium 2.4 mg/dl (1.8-2.4); Potassium 3.9 mmol/L (3.5-5.1)
--- NOTE | 2020-10-26 13:22 | Hospitalist Progress Note ---
Date of Service October 26, 2020 Assessment & Plan (1) Asymptomatic hypertensive urgency: Plan: Situational secondary to discomfort BP stable Monitor Left flank contusion secondary to recurrent falls Ambulatory dysfunction -CT Head:No acute intracranial abnormality. Left greater than right mastoid effusions. -CT ABD:Mild soft tissue stranding in the left flank without acute fracture or other acute abnormalities. Fall precautions PT OT Hb stable H/O PAF/TIA Continue metoprolol Resume Coumadin Monitor INR: 2.0 Hyperlipidemia on statin H/O Lewy body dementia Mild confusion with usual hallucinations at baseline Reorient frequently to minimize delirium Seizure disorder on Keppra H/O Chemotherapy induced neuropathy on gabapentin--hold for now Non-Hodgkin's lymphoma S/P chemotherapy currently in remission prostate cancer S/P radiation DVT Px: Coumadin Code Status Full Code Admission and Anticipated Discharge Date Admission Date: October 26, 2020 Subjective Patient is seen and examined at bedside History is unreliable given history of dementia States having minimal left flank pain intermittently Denies chest pain, dyspnea, dizziness, nausea No other complaints Review of Systems Review of Systems: All systems reviewed & are unremarkable except as noted in Subjective Physical Exam Physical Exam: Physical Exam: Vitals signs as noted above General Appearance:Moderately built and nourished, no apparent distress Head: normocephalic, Atraumatic Eyes: normal inspection, EOMI Neck: supple, Trachea midline Respiratory/Chest: Normal breath sounds, CTA Cardiovascular: S1, S2, No murmur Abdomen/GI:Soft, Non tender, Bowel sounds present, +Left flank ecchymoses Extremities/Musculoskeletal:normal inspection, no edema Neurologic/Psych:Alert, awake, +Dementia, grossly no focal neurological deficits Skin: normal color, warm Results & Data Results & Data ([facility]) Vital Signs (Past 12 Hours) Vital Signs Temp Pulse Pulse Resp BP Pulse Ox 10/26/20 10:52 36.4 C L 67 16 131/74 97 10/26/20 07:34 36.5 C 60 20 163/73 H 97 10/26/20 07:14 64 Laboratory Results Short CBC 10/25/20 10/25/20 10/26/20 Range/Units 18:45 23:21 06:54 WBC 7.52 7.41 (4.8-10.8) K/uL Hgb 12.5 L 13.0 L 13.3 L (14.0-18.0) g/dL Hct 35.9 L 37.9 L 38.6 L (42-52) % Plt Count 194 207 (130-400) K/uL BMP 10/25/20 10/25/20 10/26/20 18:45 21:26 06:54 Sodium 138 140 Potassium 3.9 3.9 Chloride 107 107 Carbon Dioxide 26 27 BUN 21 H 18 Creatinine 1.22 1.07 Glucose 102 H 98 Calcium 8.9 9.2 Cardiac Enzymes 10/25/20 Range/Units 21:26 Total Creatine Kinase 117 (39-308) U/L Liver Function 10/25/20 10/25/20 Range/Units 18:45 21:26 Total Bilirubin 0.5 (0.2-1) mg/dl AST 40 H (15-37) U/L ALT 55 (12-78) U/L Alkaline Phosphatase 85 (45-117) U/L Albumin 3.3 L (3.4-5.0) gm/dl Urine 10/25/20 Range/Units 21:10 Urine Color Yellow Urine Appearance Clear (Clear) Urine pH 6.0 (4.5-7.5) Ur Specific [place] 1.017 (1.000-1.030) Urine Protein Negative (Negative) Urine Glucose (UA) Negative (Negative)
[2020-10-26] MEDS: OLANZapine 10 MG/2.1 ML SDV IM PRN ×2 (14:32→20:08)
--- NOTE | 2020-10-26 15:30 | Electrocardiogram Report ---
Test Reason : Blood Pressure : / mmHG Vent. Rate : 075 BPM Atrial Rate : 075 BPM P-R Int : 142 ms QRS Dur : 116 ms QT Int : 410 ms P-R-T Axes : 053 -52 -06 degrees QTc Int : 457 ms Normal sinus rhythm Left anterior fascicular block Left ventricular hypertrophy with QRS widening Nonspecific ST abnormality Abnormal ECG No previous ECGs available Confirmed by Calvin Hernandez ([id number]) on 10/26/2020 3:30:06 PM Referred By: REFERRED SELF Confirmed By:Malvin Hernandez
[2020-10-26] MEDS ORDERED: WARFARIN SOD 3 MG TAB PO SCH (16:00)
[2020-10-26] MEDS: SIMVASTATIN 20 MG TAB PO SCH (20:10)
[2020-10-27] MEDS: OLANZapine 10 MG/2.1 ML SDV IM PRN (00:17)
[2020-10-27] MEDS: ACETAMINOPHEN 325 MG TAB PO PRN (02:22)
[2020-10-27] MEDS ORDERED: OLANZapine 10 MG/2.1 ML SDV IM STA (02:33)
[2020-10-27 06:34] LABS: Hematocrit (blood only) 39.5 % (42-52); Hemoglobin 13.6 g/dL (14.0-18.0); Mean Corpuscular Hemoglobin 33.9 pg (25-34); Mean Corpuscular Hgb Conc 34.4 g/dL (32-36); Mean Corpuscular Volume 98.5 fL (80-100); Mean Platelet Volume 9.9 fL (7.4-10.4); Platelet Count 191 K/uL (130-400); RDW Standard Deviation 50.2 fL (36.4-46.3); Red Blood Count 4.01 M/uL (4.7-6.1); White Blood Count 7.23 K/uL (4.8-10.8)
[2020-10-27] MEDS: PANTOprazole 40 MG TAB PO SCH (06:38)
[2020-10-27] MEDS: LEVOTHYROXINE SODIUM 175 MCG TABLET PO SCH (06:38)
[2020-10-27 06:39] LABS: INR 1.9 (0.9-1.1)
[2020-10-27 07:02] LABS: BUN Creatinine Ratio 17.9 (10-20); Creatinine Clr Calc Pharmacy 49.3 ml/min; Est GFR (African American) 81.6 ml/min; Est GFR (Non-African American) 70.4 ml/min; Magnesium 2.1 mg/dl (1.8-2.4); Potassium 3.7 mmol/L (3.5-5.1)
[2020-10-27] MEDS: METOPROLOL SUCC 25MG EXT REL TAB PO SCH (09:33)
[2020-10-27] MEDS: levETIRAcetam 500 MG TAB PO SCH ×2 (09:34→20:50)
[2020-10-27] MEDS: SERTRALINE HCL 50 MG TABLET PO SCH (09:34)
[2020-10-27] MEDS: allopurinoL 100 MG TAB PO SCH (09:34)
[2020-10-27] MEDS: allopurinoL 300 MG TAB PO SCH (09:34)
[2020-10-27] MEDS: WARFARIN SOD 0.5 MG TAB PO SCH (16:13)
--- NOTE | 2020-10-27 17:07 | Hospitalist Progress Note ---
Date of Service October 27, 2020 Assessment & Plan (1) Asymptomatic hypertensive urgency: Plan: Situational secondary to discomfort BP stable Monitor Left flank contusion secondary to recurrent falls Ambulatory dysfunction -CT Head:No acute intracranial abnormality. Left greater than right mastoid effusions. -CT ABD:Mild soft tissue stranding in the left flank without acute fracture or other acute abnormalities. Fall precautions PT OT Hb stable H/O PAF/TIA Continue metoprolol Continue Coumadin Monitor INR: 1.9 today Hyperlipidemia on statin H/O Lewy body dementia Delirium Mild confusion with usual hallucinations at baseline Reorient frequently to minimize delirium Seizure disorder on Keppra H/O Chemotherapy induced neuropathy on gabapentin--hold for now Non-Hodgkin's lymphoma S/P chemotherapy currently in remission prostate cancer S/P radiation DVT Px: Coumadin Code Status Full Code Disposition Plan to discharge to SNF as able Case management o help with discharge planning Admission and Anticipated Discharge Date Admission Date: October 26, 2020 Subjective Patient is seen and examined at bedside History is unreliable given history of dementia Confused during my encounter Received Zyprexa overnight for agitation/combative No flank tenderness on exam Unable to obtain much history Review of Systems Review of Systems: All systems reviewed & are unremarkable except as noted in Subjective Physical Exam Physical Exam: Physical Exam: Vitals signs as noted above General Appearance:Moderately built and nourished, no apparent distress Head: normocephalic, Atraumatic Eyes: normal inspection, EOMI Neck: supple, Trachea midline Respiratory/Chest: Normal breath sounds, CTA Cardiovascular: S1, S2, No murmur Abdomen/GI:Soft, Non tender, Bowel sounds present, +Left flank ecchymoses Extremities/Musculoskeletal:normal inspection, no edema Neurologic/Psych:Alert, awake, +Dementia, grossly no focal neurological deficits Skin: normal color, warm Results & Data Results & Data ([facility]) Vital Signs (Past 12 Hours) Vital Signs Temp Pulse Pulse Resp BP Pulse Ox 10/27/20 15:19 94 H 10/27/20 14:56 36.8 C 96 H 18 120/87 94 10/27/20 13:38 71 10/27/20 11:31 36.8 C 100 H 18 155/82 H 97 10/27/20 09:40 36.5 C 85 18 138/81 96 Laboratory Results Short CBC 10/27/20 Range/Units 06:08 WBC 7.23 (4.8-10.8) K/uL Hgb 13.6 L (14.0-18.0) g/dL Hct 39.5 L (42-52) % Plt Count 191 (130-400) K/uL [facility] 10/27/20 06:08 Sodium 141 Potassium 3.7 Chloride 109 H Carbon Dioxide 28 BUN 17 Creatinine 0.97 Glucose 98 Calcium 9.0
[2020-10-27] MEDS: TRAVOPROST Z 0.004% OPH SOLN 2.5 ML BTL OPB SCH (20:50)
[2020-10-27] MEDS: SIMVASTATIN 20 MG TAB PO SCH (20:50)
[2020-10-28] MEDS: ACETAMINOPHEN 325 MG TAB PO PRN (00:05)
[2020-10-28] MEDS: LEVOTHYROXINE SODIUM 175 MCG TABLET PO SCH (05:34)
[2020-10-28] MEDS: PANTOprazole 40 MG TAB PO SCH (05:34)
[2020-10-28] MEDS: SERTRALINE HCL 50 MG TABLET PO SCH (08:55)
[2020-10-28] MEDS: METOPROLOL SUCC 25MG EXT REL TAB PO SCH (08:55)
[2020-10-28] MEDS: levETIRAcetam 500 MG TAB PO SCH ×2 (08:55→20:15)
[2020-10-28] MEDS: allopurinoL 100 MG TAB PO SCH (08:55)
[2020-10-28] MEDS: allopurinoL 300 MG TAB PO SCH (08:55)
[2020-10-28 09:04] LABS: Hematocrit (blood only) 41.2 % (42-52); Hemoglobin 14.2 g/dL (14.0-18.0)
[2020-10-28 09:14] LABS: INR 2.1 (0.9-1.1); Prothrombin Time 20.2 Seconds (9.0-12.0)
[2020-10-28 09:34] LABS: BUN Creatinine Ratio 19.3 (10-20); Calcium 8.9 mg/dl (8.5-10.1); Creatinine Clr Calc Pharmacy 44.7 ml/min; Est GFR (African American) 72.5 ml/min; Est GFR (Non-African American) 62.5 ml/min
[2020-10-28 10:34] LABS: Potassium 3.9 mmol/L (3.5-5.1)
[2020-10-28 10:35] LABS: Magnesium 2.1 mg/dl (1.8-2.4)
[2020-10-28] MEDS: WARFARIN SOD 0.5 MG TAB PO SCH (14:59)
[2020-10-28] MEDS ORDERED: METOPROLOL SUCC 25MG EXT REL TAB PO ONE (15:32)
--- NOTE | 2020-10-28 15:32 | Hospitalist Progress Note ---
Date of Service October 28, 2020 Assessment & Plan (1) Asymptomatic hypertensive urgency: Plan: Situational secondary to discomfort BP elevated Increase Metoprolol to 50mg daily Monitor Left flank contusion secondary to recurrent falls Ambulatory dysfunction -CT Head:No acute intracranial abnormality. Left greater than right mastoid effusions. -CT ABD:Mild soft tissue stranding in the left flank without acute fracture or other acute abnormalities. Fall precautions PT OT Hb stable Will benefit from SNF Placement COVID Exposure Saturating well on room air No signs of cough, dyspnea Needs discussed with infection control Continue isolation precautions Updated patient's over the phone H/O PAF/TIA Continue metoprolol Continue Coumadin Monitor INR: 2.1 today Hyperlipidemia on statin H/O Lewy body dementia Delirium Mild confusion with usual hallucinations at baseline Reorient frequently to minimize delirium Seizure disorder on Keppra H/O Chemotherapy induced neuropathy on gabapentin--hold for now Non-Hodgkin's lymphoma S/P chemotherapy currently in remission prostate cancer S/P radiation DVT Px: Coumadin Code Status Full Code Disposition Plan to discharge to SNF as able Case management o help with discharge planning Admission and Anticipated Discharge Date Admission Date: October 26, 2020 Subjective Patient is seen and examined at bedside History is unreliable given history of dementia Baseline confusion/hallucinations No agitation during my encounter left flank ecchymosis improved Updated patient's during my encounter Review of Systems Review of Systems: Unobtainable due to cognitive status Physical Exam Physical Exam: Physical Exam: Vitals signs as noted above General Appearance:Moderately built and nourished, no apparent distress Head: normocephalic, Atraumatic Eyes: normal inspection, EOMI Neck: supple, Trachea midline Respiratory/Chest: Normal breath sounds, CTA Cardiovascular: S1, S2, No murmur Abdomen/GI:Soft, Non tender, Bowel sounds present, +Left flank ecchymoses improved Extremities/Musculoskeletal:normal inspection, no edema Neurologic/Psych:Alert, awake, +Dementia, grossly no focal neurological deficits Skin: normal color, warm Results & Data Results & Data ([facility]) Vital Signs (Past 12 Hours) Vital Signs Temp Pulse Pulse Resp BP Pulse Ox 10/28/20 15:12 36.1 C L 78 16 194/82 H 95 10/28/20 12:00 36.7 C 97 H 28 H 164/85 H 96 10/28/20 08:41 36.1 C L 84 18 186/87 H 97 10/28/20 07:22 66 10/28/20 03:59 36.5 C 65 18 137/75 95 Laboratory Results Short CBC 10/28/20 Range/Units 08:33 Hgb 14.2 (14.0-18.0) g/dL Hct 41.2 L (42-52) % BMP 10/28/20 10/28/20 08:33 10:00 Sodium 140 Potassium 3.9 Chloride 109 H Carbon Dioxide 27 BUN 21 H Creatinine 1.07 Glucose 89 Calcium 8.9
[2020-10-28] MEDS: SIMVASTATIN 20 MG TAB PO SCH (20:15)
[2020-10-28] MEDS: TRAVOPROST Z 0.004% OPH SOLN 2.5 ML BTL OPB SCH (20:15)
[2020-10-29] MEDS: PANTOprazole 40 MG TAB PO SCH (05:28)
[2020-10-29] MEDS: LEVOTHYROXINE SODIUM 175 MCG TABLET PO SCH (05:28)
[2020-10-29 07:58] LABS: Hematocrit (blood only) 41.6 % (42-52); Hemoglobin 14.4 g/dL (14.0-18.0)
[2020-10-29 08:23] LABS: INR 3.5 (0.9-1.1)
[2020-10-29] MEDS: METOPROLOL SUCC 50MG EXT REL TAB PO SCH (08:33)
[2020-10-29] MEDS: levETIRAcetam 500 MG TAB PO SCH ×3 (08:34→19:50)
[2020-10-29] MEDS: SERTRALINE HCL 50 MG TABLET PO SCH (08:36)
[2020-10-29] MEDS: allopurinoL 100 MG TAB PO SCH (08:36)
[2020-10-29] MEDS: allopurinoL 300 MG TAB PO SCH (08:36)
[2020-10-29 08:37] LABS: BUN Creatinine Ratio 20.1 (10-20); Calcium 9.1 mg/dl (8.5-10.1); Est GFR (African American) 67.1 ml/min; Est GFR (Non-African American) 57.9 ml/min; Potassium 3.8 mmol/L (3.5-5.1)
[2020-10-29] MEDS: OLANZapine 10 MG/2.1 ML SDV IM PRN ×2 (12:18→19:48)
--- NOTE | 2020-10-29 15:41 | Hospitalist Progress Note ---
Date of Service October 29, 2020 Assessment & Plan (1) Asymptomatic hypertensive urgency: Plan: Situational secondary to discomfort Increase Metoprolol to 50mg daily BP stable today Left flank contusion secondary to recurrent falls Ambulatory dysfunction -CT Head:No acute intracranial abnormality. Left greater than right mastoid effusions. -CT ABD:Mild soft tissue stranding in the left flank without acute fracture or other acute abnormalities. Fall precautions PT OT Hb stable Will benefit from SNF Placement COVID Exposure Saturating well on room air No signs of cough, dyspnea Needs discussed with infection control Continue isolation precautions Updated patient's over the phone Plan to repeat COVID screen on 11/01/20 or earlier if planned for discharge Need to continue Isolation till 11/10/20 Appreciate Infection Control Input H/O PAF/TIA Continue metoprolol Hold Coumadin today Monitor INR: 2.1> 3.5 Hyperlipidemia on statin H/O Lewy body dementia Delirium Mild confusion with hallucinations Reorient frequently to minimize delirium Consult Psychiatry for Input Seizure disorder on Keppra H/O Chemotherapy induced neuropathy Resume gabapentin at lower dose 300mg TID Non-Hodgkin's lymphoma S/P chemotherapy currently in remission prostate cancer S/P radiation DVT Px: Coumadin on hold INR supratherapeutic Code Status Full Code Disposition Plan to discharge to SNF as able Case management o help with discharge planning Admission and Anticipated Discharge Date Admission Date: October 26, 2020 Subjective Patient is seen and examined at bedside History is unreliable given history of dementia More alert, awake today but remains confused and seems to have hallucinations No significant diarrhea today Review of Systems Review of Systems: Unobtainable due to cognitive status Physical Exam Physical Exam: Physical Exam: Vitals signs as noted above General Appearance:Moderately built and nourished, no apparent distress Head: normocephalic, Atraumatic Eyes: normal inspection, EOMI Neck: supple, Trachea midline Respiratory/Chest: Normal breath sounds, CTA Cardiovascular: S1, S2, No murmur Abdomen/GI:Soft, Non tender, Bowel sounds present, +Left flank ecchymoses improved Extremities/Musculoskeletal:normal inspection, no edema Neurologic/Psych:Alert, awake, +Dementia, grossly no focal neurological deficits Skin: normal color, warm Results & Data Results & Data ([facility]) Vital Signs (Past 12 Hours) Vital Signs Temp Pulse Pulse Resp BP Pulse Ox 10/29/20 10:52 36.7 C 73 16 128/77 93 10/29/20 07:18 36.8 C 91 H 16 132/77 96 10/29/20 07:09 80 Laboratory Results Short CBC 10/29/20 Range/Units 07:27 Hgb 14.4 (14.0-18.0) g/dL Hct 41.6 L (42-52) % BMP 10/29/20 07:27 Sodium 141 Potassium 3.8 Chloride 108 H Carbon Dioxide 25 BUN 23 H Creatinine 1.14 Glucose 90 Calcium 9.1
--- NOTE | 2020-10-29 16:59 | Psychiatric Consultation ---
Date of Consultation October 29, 2020 Impression / Recommendations Impression 85 yo male, certainly cannot exclude subclinical seizure activity but EEG would be low yield as likely diffuse encephalopathy, likely some degree of hospital acquired delirium superimposed on rather severe Lewy body dementia. (1) Hallucinations: (2) Lewy body dementia: Given exquisite sensitivity of patients with Lewy body dementia to antipsychotic medications, attempt to avoid as can impact swallow, etc. Generally aim to target agitation or if hallucinations are interfering with ability to provide comfort care as otherwise increased risk of in elderly dementia patients. Attempt to limit polypharmacy. 1. Dr. Almanza can consider taper of Zoloft to 25 mg for 2 days then d/c 2. Dr. Almanza to consider standing Zyprexa 1.25 mg hs then BID if family supports. Monitor closely for EPS. Avoid anticholinergics. Psych History Identifying Data 85 yo male admit to med floor with increased confusion and hypertensive urgency. Consult is by Dr. Almanza for visual hallucinations. Chief Complaint worsening hallucinations making it difficult to care for patient. History of Present Illness Patient with established dx of lewy body dementia, admit for increase in kauffman and falls at home. Patient will require long term placement. Today became resistant to care, seemingly fearful of nursing (who are in full PPE for respiratory droplet precautions due to Covid exposure, patient tested negative) requiring 2.5 mg zyprexa IM X1. Other than nonsensical speech and clearly pointing/responding to kauffman he hasn't been agitated earlier in stay. Is on Keppra for seizure hx. Past Psychiatric History Previous Psych History: no formal on chart, liaison to contact family, unclear indication for Zoloft. Allergies Allergy/AdvReac Type Severity Reaction Status Date / Time Sulfa (Sulfonamide Allergy Mild RASH TO Verified 10/25/20 21:25 Antibiotics) "SULFA DRUGS" Home Medications Medication Instructions Recorded Confirmed Type allopurinol 100 mg tablet 100 mg PO DAILY 10/25/20 10/25/20 History allopurinol 300 mg tablet 300 mg PO DAILY 10/25/20 10/25/20 History brimonidine 0.2 %-timolol 0.5 % 1 drp OPHTHALMIC (EYE) BID 10/25/20 10/25/20 History eye drops (Combigan) gabapentin 600 mg tablet 600 mg PO TID 10/25/20 10/25/20 History levetiracetam 500 mg tablet 500 mg PO BID 10/25/20 10/25/20 History levothyroxine 175 mcg tablet 175 mcg PO DAILYBB 10/25/20 10/25/20 History metoprolol succinate 25 mg 25 mg PO DAILY 10/25/20 10/25/20 History tablet,extended release 24 hr omeprazole 20 mg capsule,delayed 20 mg PO DAILYBB 10/25/20 10/25/20 History release sertraline 50 mg tablet 50 mg PO DAILY 10/25/20 10/25/20 History simvastatin 20 mg tablet 20 mg PO HS 10/25/20 10/25/20 History travoprost 0.004 % eye drops 1 drp OPB PM 10/25/20 10/25/20 History (Travatan Z) warfarin 3 mg tablet See Rx Instructions .ROUTE .COMPLEX 10/25/20 10/25/20 History Family History unavailable due to MSE Substance Abuse History n/a Personal History Living Arrangements: Home (family no longer able to care for patient in this state) Highest Grade Completed: High School Graduate Employment Status: Retired Marital Status: Number Of Children: daughter involved in care Beliefs That Will Affect Care: None Patient History Social History Smoking Status: Never smoker Second Hand Exposure: No; Do You Dip or Chew Tobacco: No; Hx Alcohol Use: No Hx Substance Use: No Preferred Language: Tongan Communication Ability: Impaired 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 picking at the air with left hand, asking me about what number is next but otherwise non sensical, no clear evidence of staring or seizure activity, unclear if able to hear well with double masking/N95 on provider. Thin male. Unaware blanket not covering genitals, etc. Vital Signs (Past 24 Hours): Last Vital Signs Temp 36.7 C 10/29/20 10:52 Pulse 73 10/29/20 10:52 Resp 16 10/29/20 10:52 BP 128/77 10/29/20 10:52 Pulse Ox 93 10/29/20 10:52 Review of Systems Unobtainable due to cognitive status Results & Data ([facility]) Diagnostic Findings head CT no acute disease, no MRI this visit Medications Administered Acetaminophen (Acetaminophen 325 Mg Tab) 650 mg PO Q4H PRN PRN Reason: Pain or Fever Stop: 11/25/20 00:40 Last Admin: 10/28/20 00:05 Dose: 650 mg Documented by: [id number] Admin: 10/27/20 02:22 Dose: 650 mg Documented by: [id number] Allopurinol (Allopurinol 100 Mg Tab) 100 mg PO DAILY [facility] Stop: 11/25/20 08:59 Last Admin: 10/29/20 08:36 Dose: 100 mg Documented by: [id number] Admin: 10/28/20 08:55 Dose: 100 mg Documented by: [id number] Admin: 10/27/20 09:34 Dose: 100 mg Documented by: [id number] Admin: 10/26/20 08:17 Dose: 100 mg Documented by: [id number] Allopurinol (Allopurinol 300 Mg Tab) 300 mg PO DAILY [facility] Stop: 11/25/20 08:59 Last Admin: 10/29/20 08:36 Dose: 300 mg Documented by: [id number] Admin: 10/28/20 08:55 Dose: 300 mg Documented by: [id number] Admin: 10/27/20 09:34 Dose: 300 mg Documented by: [id number] Admin: 10/26/20 08:18 Dose: 300 mg Documented by: [id number] Levetiracetam (Levetiracetam 500 Mg Tab) 500 mg PO BID [facility] Stop: 11/25/20 00:40 Last Admin: 10/29/20 08:34 Dose: 500 mg Documented by: [id number] Admin: 10/28/20 20:15 Dose: 500 mg Documented by: [id number] Admin: 10/28/20 08:55 Dose: 500 mg Documented by: [id number] Admin: 10/27/20 20:50 Dose: 500 mg Documented by: [id number] Admin: 10/27/20 09:34 Dose: 500 mg Documented by: [id number] Admin: 10/26/20 20:10 Dose: 500 mg Documented by: [id number] Admin: 10/26/20 08:18 Dose: 500 mg Documented by: [id number] Admin: 10/26/20 01:38 Dose: 500 mg Documented by: [id number] Levothyroxine Sodium (Levothyroxine Sodium 175 Mcg Tablet) 175 mcg PO DAILYBB [facility] Stop: 11/25/20 06:29 Last Admin: 10/29/20 05:28 Dose: 175 mcg Documented by: [id number] Admin: 10/28/20 05:34 Dose: 175 mcg Documented by: [id number] Admin: 10/27/20 06:38 Dose: Not Given Documented by: [id number] Admin: 10/26/20 06:03 Dose: 175 mcg Documented by: [id number] Metoprolol Succinate (Metoprolol Succ 50mg Ext Rel Tab) 50 mg PO DAILY [facility] Stop: 11/28/20 08:59 Last Admin: 10/29/20 08:33 Dose: 50 mg Documented by: [id number] Miscellaneous (Brimonidine-Timolol [Combigan]: Order Awaiting Action) 1 ea N/A QS [facility] Stop: 11/25/20 07:59 Last Admin: 10/29/20 15:32 Dose: Not Given Documented by: [id number] Admin: 10/29/20 08:32 Dose: Not Given Documented by: [id number] Admin: 10/28/20 20:51 Dose: Not Given Documented by: [id number] Admin: 10/28/20 12:58 Dose: Not Given Documented by: [id number] Admin: 10/28/20 07:05 Dose: Not Given Documented by: [id number] Admin: 10/27/20 22:36 Dose: Not Given Documented by: [id number] Admin: 10/27/20 16:04 Dose: Not Given Documented by: [id number] Admin: 10/27/20 09:27 Dose: Not Given Documented by: [id number] Admin: 10/26/20 23:36 Dose: Not Given Documented by: [id number] Admin: 10/26/20 13:53 Dose: Not Given Documented by: [id number] Admin: 10/26/20 07:21 Dose: Not Given Documented by: [id number] Olanzapine (Olanzapine 10 Mg/2.1 Ml Sdv) 2.5 mg IM Q4H PRN PRN Reason: Anxiety/Agitation Stop: 11/25/20 05:42 Last Admin: 10/29/20 12:18 Dose: 2.5 mg Documented by: [id number] Admin: 10/27/20 00:17 Dose: 2.5 mg Documented by: [id number] Admin: 10/26/20 20:08 Dose: 2.5 mg Documented by: [id number] Admin: 10/26/20 14:32 Dose: 2.5 mg Documented by: [id number] Pantoprazole Sodium (Pantoprazole 40 Mg Tab) 40 mg PO DAILYBB [facility] Stop: 11/25/20 06:29 Last Admin: 10/29/20 05:28 Dose: 40 mg Documented by: [id number] Admin: 10/28/20 05:34 Dose: 40 mg Documented by: [id number] Admin: 10/27/20 06:38 Dose: Not Given Documented by: [id number] Admin: 10/26/20 06:03 Dose: 40 mg Documented by: [id number] Sertraline HCl (Sertraline Hcl 50 Mg Tablet) 50 mg PO DAILY [facility] Stop: 11/25/20 08:59 Last Admin: 10/29/20 08:36 Dose: 50 mg Documented by: [id number] Admin: 10/28/20 08:55 Dose: 50 mg Documented by: [id number] Admin: 10/27/20 09:34 Dose: 50 mg Documented by: [id number] Admin: 10/26/20 08:17 Dose: 50 mg Documented by: [id number] Simvastatin (Simvastatin 20 Mg Tab) 20 mg PO HS [facility] Stop: 11/25/20 20:59 Last Admin: 10/28/20 20:15 Dose: 20 mg Documented by: [id number] Admin: 10/27/20 20:50 Dose: 20 mg Documented by: [id number] Admin: 10/26/20 20:10 Dose: 20 mg Documented by: [id number] Travoprost (Travoprost Z 0.004% Oph Soln 2.5 Ml Btl) 1 drops OPB PM [facility] Stop: 11/25/20 00:40 Last Admin: 10/28/20 20:15 Dose: 1 drops Documented by: [id number] Admin: 10/27/20 20:50 Dose: 1 drops Documented by: [id number] Admin: 10/26/20 20:11 Dose: 1 drops Documented by: [id number] Admin: 10/26/20 01:37 Dose: 1 drops Documented by: [id number] Coding Level of Care Code 85353 [facility] Lvl 2 Diagnoses Hallucinations R44.3 Lewy body dementia G31.83; F02.80
[2020-10-29] MEDS: OLANZAPINE 2.5 MG TAB PO SCH ×2 (19:20→19:50)
[2020-10-29] MEDS: SIMVASTATIN 20 MG TAB PO SCH ×2 (19:21→19:50)
[2020-10-29] MEDS: TRAVOPROST Z 0.004% OPH SOLN 2.5 ML BTL OPB SCH ×2 (19:23→19:51)
[2020-10-29] MEDS: GABAPENTIN 300 MG CAP PO SCH (19:38)
[2020-10-30] MEDS: PANTOprazole 40 MG TAB PO SCH (05:02)
[2020-10-30] MEDS: LEVOTHYROXINE SODIUM 175 MCG TABLET PO SCH (05:02)
[2020-10-30 06:45] LABS: Prothrombin Time 36.1 Seconds (9.0-12.0)
[2020-10-30 06:56] LABS: BUN Creatinine Ratio 24.6 (10-20); Calcium 9.1 mg/dl (8.5-10.1); Creatinine Clr Calc Pharmacy 40.8 ml/min; Est GFR (African American) 57.8 ml/min; Est GFR (Non-African American) 49.9 ml/min; Magnesium 1.9 mg/dl (1.8-2.4)
[2020-10-30] MEDS: allopurinoL 100 MG TAB PO SCH (07:51)
[2020-10-30] MEDS: allopurinoL 300 MG TAB PO SCH (07:51)
[2020-10-30] MEDS: levETIRAcetam 500 MG TAB PO SCH ×2 (07:51→19:59)
[2020-10-30] MEDS: GABAPENTIN 300 MG CAP PO SCH ×3 (07:51→19:59)
[2020-10-30] MEDS: METOPROLOL SUCC 50MG EXT REL TAB PO SCH (07:52)
[2020-10-30] MEDS: SERTRALINE HCL 50 MG TABLET PO SCH (07:52)
--- NOTE | 2020-10-30 16:50 | Hospitalist Progress Note ---
Date of Service October 30, 2020 Assessment & Plan (1) Asymptomatic hypertensive urgency: Plan: Situational secondary to discomfort Increase Metoprolol to 50mg daily BP stable today Left flank contusion secondary to recurrent falls Ambulatory dysfunction -CT Head:No acute intracranial abnormality. Left greater than right mastoid effusions. -CT ABD:Mild soft tissue stranding in the left flank without acute fracture or other acute abnormalities. Fall precautions PT OT Hb stable Will need SNF Placement COVID Exposure Saturating well on room air No signs of cough, dyspnea Needs discussed with infection control Continue isolation precautions Updated patient's over the phone Plan to repeat COVID screen on 11/01/20 or earlier if planned for discharge Need to continue Isolation till 11/10/20 Appreciate Infection Control Input H/O PAF/TIA Continue metoprolol Monitor INR: 2.1> 3.5>4.0 No bleeding issues Hold Coumadin today Hyperlipidemia on statin H/O Lewy body dementia Delirium Mild confusion with hallucinations at baseline Reorient frequently to minimize delirium Hallucination worsened likely due to delirium Titrate off of Zoloft Started on Zyprexa 1.25mg HS---Titrate to BID if tolerates Appreciate Psychiatry Input Avoid anticholinergics Seizure disorder on Keppra H/O Chemotherapy induced neuropathy Resumed gabapentin at lower dose 300mg TID Non-Hodgkin's lymphoma S/P chemotherapy currently in remission prostate cancer S/P radiation DVT Px: Coumadin on hold INR supratherapeutic Code Status Full Code Disposition Plan to discharge to SNF as able Case management o help with discharge planning Admission and Anticipated Discharge Date Admission Date: October 26, 2020 Subjective Patient is seen and examined at bedside History is unreliable given history of dementia + Hallucinations Uncooperative and has poor appetite as per RN Afebrile Saturating well on room air Review of Systems Review of Systems: Unobtainable due to cognitive status Physical Exam Physical Exam: Physical Exam: Vitals signs as noted above General Appearance:Moderately built and nourished, no apparent distress Head: normocephalic, Atraumatic Eyes: normal inspection, EOMI Neck: supple, Trachea midline Respiratory/Chest: Normal breath sounds, CTA Cardiovascular: S1, S2, No murmur Abdomen/GI:Soft, Non tender, Bowel sounds present, +Left flank ecchymoses improved Extremities/Musculoskeletal:normal inspection, no edema Neurologic/Psych:Alert, awake, +Dementia, grossly no focal neurological deficits Skin: normal color, warm Results & Data Results & Data ([facility]) Vital Signs (Past 12 Hours) Vital Signs Temp Pulse Resp BP Pulse Ox 10/30/20 15:25 37.1 C 92 H 16 109/70 96 Laboratory Results [facility] 10/30/20 05:39 Sodium 139 Potassium 4.0 Chloride 107 Carbon Dioxide 25 BUN 32 H Creatinine 1.29 Glucose 79 Calcium 9.1
[2020-10-30] MEDS: OLANZAPINE 2.5 MG TAB PO SCH (19:59)
[2020-10-30] MEDS: BRIMONIDINE TARTRATE 0.2% 5ML OP SCH (19:59)
[2020-10-30] MEDS: SIMVASTATIN 20 MG TAB PO SCH (19:59)
[2020-10-30] MEDS: TRAVOPROST Z 0.004% OPH SOLN 2.5 ML BTL OPB SCH (19:59)
[2020-10-30] MEDS: TIMOLOL MALEATE 0.5% OP SOLN 5 ML BTL OP SCH (19:59)
[2020-10-31] MEDS: PANTOprazole 40 MG TAB PO SCH (07:10)
[2020-10-31] MEDS: LEVOTHYROXINE SODIUM 175 MCG TABLET PO SCH (07:10)
[2020-10-31] MEDS: BRIMONIDINE TARTRATE 0.2% 5ML OP SCH ×2 (07:57→20:31)
[2020-10-31] MEDS: TIMOLOL MALEATE 0.5% OP SOLN 5 ML BTL OP SCH ×2 (07:58→20:32)
[2020-10-31] MEDS: METOPROLOL SUCC 50MG EXT REL TAB PO SCH (08:05)
[2020-10-31] MEDS: levETIRAcetam 500 MG TAB PO SCH ×2 (08:05→20:28)
[2020-10-31] MEDS: SERTRALINE HCL 50 MG TABLET PO SCH (08:06)
[2020-10-31] MEDS: allopurinoL 100 MG TAB PO SCH (08:06)
[2020-10-31] MEDS: allopurinoL 300 MG TAB PO SCH (08:06)
[2020-10-31] MEDS: GABAPENTIN 300 MG CAP PO SCH ×3 (08:08→20:28)
[2020-10-31 08:41] LABS: Hematocrit (blood only) 43.5 % (42-52); Mean Corpuscular Hgb Conc 34.5 g/dL (32-36); Mean Corpuscular Volume 101.4 fL (80-100); Mean Platelet Volume 9.9 fL (7.4-10.4); Platelet Count 234 K/uL (130-400); RDW Coefficient of Variation 14.2 % (11.5-14.5); RDW Standard Deviation 52.4 fL (36.4-46.3); Red Blood Count 4.29 M/uL (4.7-6.1); White Blood Count 10.17 K/uL (4.8-10.8)
[2020-10-31 09:00] LABS: Prothrombin Time 49.4 Seconds (9.0-12.0)
[2020-10-31 09:02] LABS: INR 5.6 (0.9-1.1)
[2020-10-31 09:13] LABS: BUN Creatinine Ratio 34.8 (10-20); Calcium 9.4 mg/dl (8.5-10.1); Creatinine Clr Calc Pharmacy 44.2 ml/min; Est GFR (African American) 71.6 ml/min; Est GFR (Non-African American) 61.8 ml/min; Magnesium 2.6 mg/dl (1.8-2.4); Potassium 4.3 mmol/L (3.5-5.1)
--- NOTE | 2020-10-31 12:48 | Hospitalist Progress Note ---
Date of Service October 31, 2020 Assessment & Plan (1) Asymptomatic hypertensive urgency: Plan: Metoprolol was increased to 50 mg daily. Blood pressure is now at goal now that pain is more under control. (2) Lewy body dementia: Plan: H/O Lewy body dementia, Delirium present Mild confusion with hallucinations at baseline Reorient frequently to minimize delirium Zoloft stopped this admission Started on Zyprexa 1.25mg HS---Titrate to BID if tolerates Appreciate Psychiatry Input Avoid anticholinergics (3) Fall: Plan: recurrent falls, PT/OT, fall precautions (4) Contusion of flank: Plan: secondary to fall. Improved off coumadin with improving INR. (5) Supratherapeutic INR: Plan: Improved with coumadin held. Cont to trend (6) Acute blood loss anemia: Plan: Secondary to significant ecchymosis of flank. Holding coumadin. (7) Seizure disorder: Plan: Chronic, stable, continue Keppra per home regimen. 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 (9) Ambulatory dysfunction: Plan: PT/OT, rehab as a transfer to home. (10) DVT prophylaxis: Plan: INR supratherapeutic, hold coumadin with significant ecchymosis and anemia. Full Code Dispo-to rehab v [facility] Kenzie Reeder DO [facility] Hospitalist Admission and Anticipated Discharge Date Admission Date: October 26, 2020 Subjective 85-year-old man presents with asymptomatic hypertensive urgency secondary to discomfort after a fall with a left flank contusion. Patient was on Coumadin which has been held. This is in the setting of Lewy body dementia that is progressed. Review of Systems Review of Systems: Review of systems could not be obtained secondary to dementia. Physical Exam Physical Exam: CONSTITUTIONAL: WNWD, vitals as above, generally well- appearing EYES: normal conjunctivae, no scleral icterus ENT: external ear and nose normal, MMM NECK: trachea midline RESPIRATORY: clear to auscultation bilaterally, no crackles, rales or wheezes, normal respiratory effort CARDIOVASCULAR: regular rate and rhythm, S1 and 2 heard without murmurs, gallops or rubs, no JVD, no peripheral edema GASTROINTESTINAL: soft, nontender, ND, no guarding MUSCULOSKELETAL: moves all extremities symmetrically, head is normocephalic and atraumatic SKIN: warm and dry NEUROLOGIC: CN 2-12 grossly intact, dementia with delirium, does not follow instructions well, disoriented, hallucinations present, pleasant. Results & Data Results & Data ([facility]) Vital Signs (Past 12 Hours) Vital Signs Temp Pulse Pulse Resp BP Pulse Ox 10/31/20 11:11 36.4 C L 69 20 108/66 95 10/31/20 07:26 70 10/31/20 03:03 36.4 C L 79 17 167/81 H 96 Laboratory Results Short CBC 10/31/20 Range/Units 07:58 WBC 10.17 (4.8-10.8) K/uL Hgb 15.0 (14.0-18.0) g/dL Hct 43.5 (42-52) % Plt Count 234 (130-400) K/uL BMP 10/31/20 07:58 Sodium 142 Potassium 4.3 Chloride 108 H Carbon Dioxide 25 BUN 38 H Creatinine 1.08 Glucose 68 L Calcium 9.4 Medications Administered Current Inpatient Medications Acetaminophen (Acetaminophen 325 Mg Tab) 650 mg PO Q4H PRN PRN Reason: Pain or Fever Stop: 11/25/20 00:40 Last Admin: 10/28/20 00:05 Dose: 650 mg Documented by: Allopurinol (Allopurinol 100 Mg Tab) 100 mg PO DAILY [facility] Stop: 11/25/20 08:59 Last Admin: 10/31/20 08:06 Dose: 100 mg Documented by: Allopurinol (Allopurinol 300 Mg Tab) 300 mg PO DAILY [facility] Stop: 11/25/20 08:59 Last Admin: 10/31/20 08:06 Dose: 300 mg Documented by: Brimonidine Tartrate (Brimonidine Tartrate 0.2% 5ml) 1 drops OP BID [facility] Stop: 11/29/20 20:59 Last Admin: 10/31/20 07:57 Dose: 1 drops Documented by: Gabapentin (Gabapentin 300 Mg Cap) 300 mg PO TID [facility] Stop: 11/28/20 20:59 Last Admin: 10/31/20 08:08 Dose: 300 mg Documented by: Promethazine HCl 6.25 mg/ (Sodium Chloride) 50.25 mls @ 201 mls/hr IV Q6H PRN PRN Reason: Nausea And Vomiting Stop: 11/25/20 00:40 Levetiracetam (Levetiracetam 500 Mg Tab) 500 mg PO BID [facility] Stop: 11/25/20 00:40 Last Admin: 10/31/20 08:05 Dose: 500 mg Documented by: Levothyroxine Sodium (Levothyroxine Sodium 175 Mcg Tablet) 175 mcg PO DAILYBB [facility] Stop: 11/25/20 06:29 Last Admin: 10/31/20 07:10 Dose: Not Given Documented by: Metoprolol Succinate (Metoprolol Succ 50mg Ext Rel Tab) 50 mg PO DAILY [facility] Stop: 11/28/20 08:59 Last Admin: 10/31/20 08:05 Dose: 50 mg Documented by: Olanzapine (Olanzapine 10 Mg/2.1 Ml Sdv) 2.5 mg IM Q4H PRN PRN Reason: Anxiety/Agitation Stop: 11/25/20 05:42 Last Admin: 10/29/20 19:48 Dose: 2.5 mg Documented by: Olanzapine (Olanzapine 2.5 Mg Tab) 1.25 mg PO HS [facility] Stop: 11/28/20 20:59 Last Admin: 10/30/20 19:59 Dose: Not Given Documented by: Pantoprazole Sodium (Pantoprazole 40 Mg Tab) 40 mg PO DAILYBB [facility] Stop: 11/25/20 06:29 Last Admin: 10/31/20 07:10 Dose: Not Given Documented by: Simvastatin (Simvastatin 20 Mg Tab) 20 mg PO HS [facility] Stop: 11/25/20 20:59 Last Admin: 10/30/20 19:59 Dose: Not Given Documented by: Timolol Maleate (Timolol Maleate 0.5% Op Soln 5 Ml Btl) 1 drops OP BID [facility] Stop: 11/29/20 20:59 Last Admin: 10/31/20 07:58 Dose: 1 drops Documented by: Travoprost (Travoprost Z 0.004% Oph Soln 2.5 Ml Btl) 1 drops OPB PM [facility] Stop: 11/25/20 00:40 Last Admin: 10/30/20 19:59 Dose: Not Given Documented by:
[2020-10-31] MEDS: OLANZAPINE 2.5 MG TAB PO SCH (20:29)
[2020-10-31] MEDS: SIMVASTATIN 20 MG TAB PO SCH (20:31)
[2020-10-31] MEDS: TRAVOPROST Z 0.004% OPH SOLN 2.5 ML BTL OPB SCH (20:32)
[2020-11-01] MEDS: PANTOprazole 40 MG TAB PO SCH (06:18)
[2020-11-01] MEDS: LEVOTHYROXINE SODIUM 175 MCG TABLET PO SCH (06:19)
[2020-11-01 06:22] LABS: Hematocrit (blood only) 42.9 % (42-52); Hemoglobin 14.9 g/dL (14.0-18.0); Mean Corpuscular Hemoglobin 34.3 pg (25-34); Mean Corpuscular Hgb Conc 34.7 g/dL (32-36); Mean Corpuscular Volume 98.6 fL (80-100); Mean Platelet Volume 9.9 fL (7.4-10.4); Platelet Count 247 K/uL (130-400); RDW Standard Deviation 49.7 fL (36.4-46.3); Red Blood Count 4.35 M/uL (4.7-6.1); White Blood Count 8.24 K/uL (4.8-10.8)
[2020-11-01 06:39] LABS: INR 3.6 (0.9-1.1); Prothrombin Time 32.6 Seconds (9.0-12.0)
[2020-11-01 06:54] LABS: BUN Creatinine Ratio 38.1 (10-20); Calcium 9.7 mg/dl (8.5-10.1); Creatinine Clr Calc Pharmacy 44.8 ml/min; Est GFR (African American) 73.3 ml/min; Est GFR (Non-African American) 63.2 ml/min; Potassium 3.7 mmol/L (3.5-5.1)
[2020-11-01] MEDS: BRIMONIDINE TARTRATE 0.2% 5ML OP SCH ×2 (07:53→20:06)
[2020-11-01] MEDS: TIMOLOL MALEATE 0.5% OP SOLN 5 ML BTL OP SCH ×2 (07:53→20:06)
[2020-11-01] MEDS: levETIRAcetam 500 MG TAB PO SCH ×2 (07:54→20:05)
[2020-11-01] MEDS: GABAPENTIN 300 MG CAP PO SCH ×3 (07:54→20:06)
[2020-11-01] MEDS: METOPROLOL SUCC 50MG EXT REL TAB PO SCH (07:55)
[2020-11-01] MEDS: allopurinoL 300 MG TAB PO SCH (07:55)
[2020-11-01] MEDS: allopurinoL 100 MG TAB PO SCH (07:55)
[2020-11-01] MEDS: OLANZAPINE 2.5 MG TAB PO SCH (20:06)
[2020-11-01] MEDS: SIMVASTATIN 20 MG TAB PO SCH (20:07)
[2020-11-01] MEDS: TRAVOPROST Z 0.004% OPH SOLN 2.5 ML BTL OPB SCH (20:07)
--- NOTE | 2020-11-01 23:45 | Hospitalist Progress Note ---
Date of Service November 01, 2020 Assessment & Plan (1) Asymptomatic hypertensive urgency: Plan: Metoprolol was increased to 50 mg daily. Blood pressure is now at goal now that pain is more under control. (2) Lewy body dementia: Plan: H/O Lewy body dementia, Delirium present Mild confusion with hallucinations at baseline Reorient frequently to minimize delirium Zoloft stopped this admission Started on Zyprexa 1.25mg HS---Titrate to BID if tolerates Appreciate Psychiatry Input Avoid anticholinergics (3) Fall: Plan: recurrent falls, PT/OT, fall precautions (4) Contusion of flank: Plan: secondary to fall. Improved off coumadin with improving INR. (5) Supratherapeutic INR: Plan: Improved with coumadin held. Cont to trend (6) Acute blood loss anemia: Plan: Secondary to significant ecchymosis of flank. Holding coumadin. (7) Seizure disorder: Plan: Chronic, stable, continue Keppra per home regimen. 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 (9) Ambulatory dysfunction: Plan: PT/OT, rehab as a transfer to home. (10) DVT prophylaxis: Plan: INR therapeutic, hold coumadin with significant ecchymosis and anemia. Full Code Dispo-to rehab v [facility] Admission and Anticipated Discharge Date Admission Date: October 26, 2020 Subjective 85-year-old man presents with asymptomatic hypertensive urgency secondary to discomfort after a fall with a left flank contusion. Patient was on Coumadin which has been held. This is in the setting of Lewy body dementia that is progressed. Review of Systems Review of Systems: Review of systems cannot be performed as patient is confabulating and delirious. Physical Exam Physical Exam: CONSTITUTIONAL: WNWD, vitals as above, generally well- appearing EYES: normal conjunctivae, no scleral icterus ENT: external ear and nose normal, MMM NECK: trachea midline RESPIRATORY: clear to auscultation bilaterally, no crackles, rales or wheezes, normal respiratory effort CARDIOVASCULAR: regular rate and rhythm, S1 and 2 heard without murmurs, gallops or rubs, no JVD, no peripheral edema GASTROINTESTINAL: soft, nontender, ND, no guarding MUSCULOSKELETAL: moves all extremities symmetrically, head is normocephalic and atraumatic SKIN: warm and dry NEUROLOGIC: CN 2-12 grossly intact, dementia with delirium, does not follow instructions well, disoriented, hallucinations present, pleasant. Results & Data Results & Data ([facility]) Vital Signs (Past 12 Hours) Vital Signs Temp Pulse Resp BP Pulse Ox 11/01/20 13:40 36.5 C 74 18 119/63 94 Laboratory Results Short CBC 11/01/20 Range/Units 06:03 WBC 8.24 (4.8-10.8) K/uL Hgb 14.9 (14.0-18.0) g/dL Hct 42.9 (42-52) % Plt Count 247 (130-400) K/uL BMP 11/01/20 06:03 Sodium 141 Potassium 3.7 Chloride 108 H Carbon Dioxide 24 BUN 40 H Creatinine 1.06 Glucose 91 Calcium 9.7 Medications Administered Current Inpatient Medications Acetaminophen (Acetaminophen 325 Mg Tab) 650 mg PO Q4H PRN PRN Reason: Pain or Fever Stop: 11/25/20 00:40 Last Admin: 10/28/20 00:05 Dose: 650 mg Documented by: Allopurinol (Allopurinol 100 Mg Tab) 100 mg PO DAILY [facility] Stop: 11/25/20 08:59 Last Admin: 11/01/20 07:55 Dose: 100 mg Documented by: Allopurinol (Allopurinol 300 Mg Tab) 300 mg PO DAILY [facility] Stop: 11/25/20 08:59 Last Admin: 11/01/20 07:55 Dose: 300 mg Documented by: Brimonidine Tartrate (Brimonidine Tartrate 0.2% 5ml) 1 drops OP BID [facility] Stop: 11/29/20 20:59 Last Admin: 11/01/20 20:06 Dose: 1 drops Documented by: Gabapentin (Gabapentin 300 Mg Cap) 300 mg PO TID [facility] Stop: 11/28/20 20:59 Last Admin: 11/01/20 20:06 Dose: 300 mg Documented by: Promethazine HCl 6.25 mg/ (Sodium Chloride) 50.25 mls @ 201 mls/hr IV Q6H PRN PRN Reason: Nausea And Vomiting Stop: 11/25/20 00:40 Levetiracetam (Levetiracetam 500 Mg Tab) 500 mg PO BID [facility] Stop: 11/25/20 00:40 Last Admin: 11/01/20 20:05 Dose: 500 mg Documented by: Levothyroxine Sodium (Levothyroxine Sodium 175 Mcg Tablet) 175 mcg PO DAILYBB [facility] Stop: 11/25/20 06:29 Last Admin: 11/01/20 06:19 Dose: 175 mcg Documented by: Metoprolol Succinate (Metoprolol Succ 50mg Ext Rel Tab) 50 mg PO DAILY [facility] Stop: 11/28/20 08:59 Last Admin: 11/01/20 07:55 Dose: 50 mg Documented by: Olanzapine (Olanzapine 10 Mg/2.1 Ml Sdv) 2.5 mg IM Q4H PRN PRN Reason: Anxiety/Agitation Stop: 11/25/20 05:42 Last Admin: 10/29/20 19:48 Dose: 2.5 mg Documented by: Olanzapine (Olanzapine 2.5 Mg Tab) 1.25 mg PO HS [facility] Stop: 11/28/20 20:59 Last Admin: 11/01/20 20:06 Dose: 1.25 mg Documented by: Pantoprazole Sodium (Pantoprazole 40 Mg Tab) 40 mg PO DAILYBB [facility] Stop: 11/25/20 06:29 Last Admin: 11/01/20 06:18 Dose: 40 mg Documented by: Simvastatin (Simvastatin 20 Mg Tab) 20 mg PO HS [facility] Stop: 11/25/20 20:59 Last Admin: 11/01/20 20:07 Dose: 20 mg Documented by: Timolol Maleate (Timolol Maleate 0.5% Op Soln 5 Ml Btl) 1 drops OP BID [facility] Stop: 11/29/20 20:59 Last Admin: 11/01/20 20:06 Dose: 1 drops Documented by: Travoprost (Travoprost Z 0.004% Oph Soln 2.5 Ml Btl) 1 drops OPB PM [facility] Stop: 11/25/20 00:40 Last Admin: 11/01/20 20:07 Dose: 1 drops Documented by:
[2020-11-02] MEDS: PANTOprazole 40 MG TAB PO SCH (05:33)
[2020-11-02] MEDS: LEVOTHYROXINE SODIUM 175 MCG TABLET PO SCH (05:33)
[2020-11-02 06:19] LABS: INR 1.8 (0.9-1.1); Prothrombin Time 17.7 Seconds (9.0-12.0)
[2020-11-02] MEDS: allopurinoL 300 MG TAB PO SCH (12:26)
[2020-11-02] MEDS: GABAPENTIN 300 MG CAP PO SCH ×3 (12:26→20:44)
[2020-11-02] MEDS: allopurinoL 100 MG TAB PO SCH (12:26)
[2020-11-02] MEDS: METOPROLOL SUCC 50MG EXT REL TAB PO SCH (12:27)
[2020-11-02] MEDS: BRIMONIDINE TARTRATE 0.2% 5ML OP SCH ×2 (12:28→20:44)
[2020-11-02] MEDS: TIMOLOL MALEATE 0.5% OP SOLN 5 ML BTL OP SCH ×2 (12:28→20:46)
[2020-11-02] MEDS: levETIRAcetam 500 MG TAB PO SCH ×2 (12:29→20:45)
--- NOTE | 2020-11-02 19:32 | Hospitalist Progress Note ---
Date of Service November 02, 2020 Assessment & Plan (1) Asymptomatic hypertensive urgency: Plan: (1) Asymptomatic hypertensive urgency: Plan: Metoprolol was increased to 50 mg daily Blood pressure improved Monitor (2) Lewy body dementia: Plan: Per Dr. Reeder's notes: H/O Lewy body dementia, Delirium present Mild confusion with hallucinations at baseline Zoloft stopped this admission Started on Zyprexa 1.25mg HS Appreciate Psychiatry Input Avoid anticholinergics Calm, cooperative monitor, ff up with Psychiatry as outpatient (3) Fall: Plan: recurrent falls, PT/OT, fall precautions transition to senior care facility (4) Contusion of flank: Plan: secondary to fall. Improved off coumadin with improving INR. INR 1.6 Continue to hold Coumadin Hemoglobin stable at 14 (5) Supratherapeutic INR: Plan: Per above (6) Acute blood loss anemia: Plan: Secondary to significant ecchymosis of flank. Holding coumadin. Hemoglobin stable at 14 (7) Atrial fibrillation: Plan: patient had 3 recurrent falls recently he has paroxysmal A fib as per [facility] outpatient records CHADsVASC score 3 in light of recurrent falls, may need to discontinue Coumadin as benefits outweigh risk ff up with [employer] in 1-2 weeks for further discussion (8) Seizure disorder: Plan: Chronic, stable, continue Keppra per home regimen. (9) Chemotherapy-induced neuropathy: Plan: Continue gabapentin per home regimen. (10) Ambulatory dysfunction: Plan: PT/OT, rehab (11) DVT prophylaxis: Plan: Hold secondary to left leg hematoma Full Code Dispo-to rehab Admission and Anticipated Discharge Date Admission Date: October 26, 2020 Subjective ff up for fall, etc seen resting in bed, comfortable pleasantly confused states he feels fine overall denies pain, cough, shortness of breath, dizziness, palpitations no abdominal pain, no diarrhea today no other symptoms Review of Systems Review of Systems: all noted and negative except for above Physical Exam Physical Exam: General- oriented x 0, not in distress, speaks in sentences with no effort or accessory muscle use Eyes- anicteric Neck- no JVD Lungs- clear breath sounds no crackles or wheezing bilaterally Heart- normal rate, regular rhythm; no murmurs Abdomen- normal bowel sounds, nondistended, soft, nontender Extremities- no pretibial edema, no calf tenderness Neuro- alert, oriented x 3; no gross focal neurologic deficits Skin- warm & dry Results & Data Results & Data ([facility]) Vital Signs (Past 12 Hours) Vital Signs Temp Pulse Resp BP BP Pulse Ox 11/02/20 15:48 36.4 C L 69 16 112/68 98 11/02/20 08:17 36.4 C L 66 16 136/72 93 all noted and reviewed including below
[2020-11-02] MEDS: SIMVASTATIN 20 MG TAB PO SCH (20:45)
[2020-11-02] MEDS: OLANZAPINE 2.5 MG TAB PO SCH (20:45)
[2020-11-02] MEDS: TRAVOPROST Z 0.004% OPH SOLN 2.5 ML BTL OPB SCH (20:45)
[2020-11-03] MEDS: PANTOprazole 40 MG TAB PO SCH (05:45)
[2020-11-03] MEDS: LEVOTHYROXINE SODIUM 175 MCG TABLET PO SCH (05:45)
[2020-11-03 07:36] LABS: INR 1.6 (0.9-1.1); Prothrombin Time 15.9 Seconds (9.0-12.0)
[2020-11-03] MEDS: METOPROLOL SUCC 50MG EXT REL TAB PO SCH (09:04)
[2020-11-03] MEDS: GABAPENTIN 300 MG CAP PO SCH ×3 (09:04→20:28)
[2020-11-03] MEDS: allopurinoL 300 MG TAB PO SCH (09:05)
[2020-11-03] MEDS: BRIMONIDINE TARTRATE 0.2% 5ML OP SCH ×2 (09:05→20:27)
[2020-11-03] MEDS: levETIRAcetam 500 MG TAB PO SCH ×2 (09:05→20:27)
[2020-11-03] MEDS: allopurinoL 100 MG TAB PO SCH (09:05)
[2020-11-03] MEDS: TIMOLOL MALEATE 0.5% OP SOLN 5 ML BTL OP SCH ×2 (09:06→20:27)
[2020-11-03] MEDS: SODIUM CHLORIDE 0.9% 1000ML 1,000 ML IV SCH (12:35)
[2020-11-03] MEDS: NYSTATIN SUSP 500,000 U/5 ML UDC PO SCH ×3 (13:44→20:27)
--- NOTE | 2020-11-03 14:54 | Communication Note ---
Date of Service: November 03, 2020 chart reviewed. Patient is more interactive with staff, maintained on low dose Zyprexa hs per hospitalist service and has improved. No IM Zyprexa for 5 days so will d/c prn order.
[2020-11-03] MEDS ORDERED: LOPERAMIDE HCL 2 MG CAP PO PRN (18:47)
--- NOTE | 2020-11-03 18:55 | Hospitalist Progress Note ---
Date of Service November 03, 2020 Assessment & Plan (1) Asymptomatic hypertensive urgency: Plan: Metoprolol was increased to 50 mg daily Blood pressure improved Monitor (2) Lewy body dementia: Plan: Per Dr. Reeder's notes: H/O Lewy body dementia, Delirium present Mild confusion with hallucinations at baseline Zoloft stopped this admission Started on Zyprexa 1.25mg HS Appreciate Psychiatry Input Avoid anticholinergics Calm, cooperative No hallucination since yesterday (3) Fall: Plan: recurrent falls, PT/OT, fall precautions Will need to transition to care home facility (4) Contusion of flank: Plan: secondary to fall. Improved off coumadin with improving INR. INR 1.6 Continue to hold Coumadin Hemoglobin stable at 14 (5) Supratherapeutic INR: Plan: Per above (6) Acute blood loss anemia: Plan: Secondary to significant ecchymosis of flank. Holding coumadin. Hemoglobin stable at 14 (7) Atrial fibrillation: Plan: Will need to evaluate chronic anticoagulation (8) Seizure disorder: Plan: Chronic, stable, continue Keppra per home regimen. (9) Chemotherapy-induced neuropathy: Plan: Continue gabapentin per home regimen. (10) Ambulatory dysfunction: Plan: PT/OT, rehab (11) DVT prophylaxis: Plan: Hold secondary to left leg hematoma Full Code Dispo-to rehab v SNF Admission and Anticipated Discharge Date Admission Date: October 26, 2020 Subjective Follow-up status post fall, flank hematoma, etc. Seen resting in bed, sleeping but easily awakened States he feels fine overall except for having 1-2 loose bowel movements this morning No abdominal pain No chest pain, palpitations, dizziness No other symptoms No other symptoms Review of Systems Review of Systems: all noted and negative except for above Physical Exam Physical Exam: General- oriented x 1, not in distress, speaks in sentences with no effort or accessory muscle use Eyes- anicteric Neck- no JVD Lungs- clear breath sounds bilaterally, no rales/wheezes Heart- normal rate, regular rhythm; no murmurs Abdomen- normal bowel sounds, nondistended, soft, nontender Left-sided flank hematoma-seems to be resolving No tenderness Extremities- no pretibial edema, no calf tenderness Neuro- alert, oriented x 1; no gross focal neurologic deficits Skin- warm & dry Results & Data Results & Data ([facility]) Vital Signs (Past 12 Hours) Vital Signs Temp Pulse Pulse Resp BP BP Pulse Ox 11/03/20 14:59 36.4 C L 83 16 116/67 90 11/03/20 12:22 36.5 C 70 18 134/76 95 11/03/20 07:59 36.6 C 70 16 138/70 96 11/03/20 06:52 36.6 C 65 16 138/73 96 all noted and reviewed including below
[2020-11-03] MEDS: TRAVOPROST Z 0.004% OPH SOLN 2.5 ML BTL OPB SCH (20:27)
[2020-11-03] MEDS: SIMVASTATIN 20 MG TAB PO SCH (20:28)
[2020-11-03] MEDS: OLANZAPINE 2.5 MG TAB PO SCH (20:28)
[2020-11-04] MEDS: SODIUM CHLORIDE 0.9% 1000ML 1,000 ML IV SCH ×2 (02:21→15:02)
[2020-11-04] MEDS: PANTOprazole 40 MG TAB PO SCH (06:12)
[2020-11-04] MEDS: LEVOTHYROXINE SODIUM 175 MCG TABLET PO SCH (06:12)
[2020-11-04] MEDS: BRIMONIDINE TARTRATE 0.2% 5ML OP SCH ×2 (08:29→20:00)
[2020-11-04] MEDS: TIMOLOL MALEATE 0.5% OP SOLN 5 ML BTL OP SCH ×2 (08:29→20:00)
[2020-11-04] MEDS: NYSTATIN SUSP 500,000 U/5 ML UDC PO SCH ×4 (08:29→20:01)
[2020-11-04] MEDS: METOPROLOL SUCC 50MG EXT REL TAB PO SCH (08:30)
[2020-11-04] MEDS: levETIRAcetam 500 MG TAB PO SCH ×2 (08:30→20:02)
[2020-11-04] MEDS: allopurinoL 100 MG TAB PO SCH (08:30)
[2020-11-04] MEDS: GABAPENTIN 300 MG CAP PO SCH ×3 (08:30→20:01)
[2020-11-04] MEDS: allopurinoL 300 MG TAB PO SCH (08:30)
--- NOTE | 2020-11-04 17:55 | Hospitalist Progress Note ---
Date of Service November 04, 2020 Assessment & Plan (1) Asymptomatic hypertensive urgency: Plan: Metoprolol was increased to 50 mg daily Blood pressure improved Monitor (2) Lewy body dementia: Plan: Per Dr. Reeder's notes: H/O Lewy body dementia, Delirium present Mild confusion with hallucinations at baseline Zoloft stopped this admission Started on Zyprexa 1.25mg HS Appreciate Psychiatry Input Avoid anticholinergics Calm, cooperative No hallucinations noted (3) Fall: Plan: recurrent falls, PT/OT, fall precautions Will need to transition to retirement facility (4) Contusion of flank: Plan: secondary to fall. Improved off coumadin with improving INR. INR 1.6 Continue to hold Coumadin Hemoglobin stable at 14 (5) Supratherapeutic INR: Plan: Per above (6) Acute blood loss anemia: Plan: Secondary to significant ecchymosis of flank. Holding coumadin. Hemoglobin stable at 14 (7) Atrial fibrillation: Plan: Will need to evaluate chronic anticoagulation in light of frequent falls (8) Seizure disorder: Plan: Chronic, stable, continue Keppra per home regimen. (9) Chemotherapy-induced neuropathy: Plan: Continue gabapentin per home regimen. (10) Ambulatory dysfunction: Plan: PT/OT, rehab (11) DVT prophylaxis: Plan: Hold secondary to left leg hematoma Full Code Dispo-to rehab v SNF Admission and Anticipated Discharge Date Admission Date: October 26, 2020 Subjective Follow-up for status post fall, etc. Seen sitting up in bed, having dinner In good spirits Pleasantly confused States he feels fine overall Still had some loose stools today No abdominal pain, nausea vomiting, chills No headache, dizziness, chest pain, palpitations No other symptoms next Review of Systems Review of Systems: all noted and negative except for above Physical Exam Physical Exam: General- oriented x 1, not in distress, speaks in sentences with no effort or accessory muscle use Eyes- anicteric Neck- no JVD Lungs- clear breath sounds, no crackles, no wheezing appreciated Heart- normal rate, regular rhythm; no murmurs Abdomen- normal bowel sounds, nondistended, soft, nontender Extremities- no pretibial edema, no calf tenderness Neuro- alert, oriented x 1; no new gross focal neurologic deficits Skin- warm & dry Results & Data Results & Data ([facility]) Vital Signs (Past 12 Hours) Vital Signs Temp Pulse Pulse Resp BP Pulse Ox 11/04/20 14:39 79 16 102/65 98 11/04/20 12:23 36.5 C 70 16 134/62 98 11/04/20 07:15 36.4 C L 65 14 138/68 96 all noted and reviewed including below
[2020-11-04] MEDS: TRAVOPROST Z 0.004% OPH SOLN 2.5 ML BTL OPB SCH (20:00)
[2020-11-04] MEDS: SIMVASTATIN 20 MG TAB PO SCH (20:01)
[2020-11-04] MEDS: OLANZAPINE 2.5 MG TAB PO SCH (20:01)
[2020-11-05] MEDS: PANTOprazole 40 MG TAB PO SCH (05:57)
[2020-11-05] MEDS: LEVOTHYROXINE SODIUM 175 MCG TABLET PO SCH (05:57)
[2020-11-05] MEDS: allopurinoL 100 MG TAB PO SCH (09:32)
[2020-11-05] MEDS: allopurinoL 300 MG TAB PO SCH (09:33)
[2020-11-05] MEDS: GABAPENTIN 300 MG CAP PO SCH ×2 (09:33→13:34)
[2020-11-05] MEDS: BRIMONIDINE TARTRATE 0.2% 5ML OP SCH (09:33)
[2020-11-05] MEDS: levETIRAcetam 500 MG TAB PO SCH (09:34)
[2020-11-05] MEDS: METOPROLOL SUCC 50MG EXT REL TAB PO SCH (09:34)
[2020-11-05] MEDS: NYSTATIN SUSP 500,000 U/5 ML UDC PO SCH ×2 (09:34→13:34)
[2020-11-05] MEDS: TIMOLOL MALEATE 0.5% OP SOLN 5 ML BTL OP SCH (09:35)
--- NOTE | 2020-11-05 12:37 | Discharge Summary ---
Date of Service November 05, 2020 Admission HPI Per Admitting Provider History obtained from patient, family, and records. Limited history from patient secondary to dementia and hearing impairment. 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 Patient has had 3 witnessed falls at home secondary to unsteady gait as per family since last week. No witnessed seizures as per family. Patient a little more confused than usual. Patient denies chest pain, S OB, headache symptoms. Bruising on left flank noted. Patient brought to the ER for evaluation by family. Medical History as above Surgical History : Carpal tunnel surgery, vascular procedure, laser trabeculoplasty, cataract surgeries, cholecystectomy, vitrectomy/scleral buckling, inguinal hernia repair Family History : Dementia, DM, heart disease, seizure disorder Personal/Social history : Non-smoker, no EtOH intake, lives with Admission Exam (Per Admitting) Constitutional GENERAL: Demented, comfortable, pleasant, slightly hard of hearing, no respiratory distress, grasping for objects invisible to examiner SKIN: Pallor , warm HEENT: Alopecia, bespectacled, pale palpebral conjunctivae, L ptosis (chronic as per family), dry buccal mucosa NECK : Supple, no tenderness CHEST : CTA, no tenderness HEART : RRR, no obvious murmurs ABDOMEN: Some distention, nontender BACK : Tender ecchymosis left flank, negative straight leg raise test EXTREMITIES : No LE swelling/tenderness, no other conspicuous deformities noted NEUROLOGIC : demented, no facial asymmetry, slightly hard of hearing, no other gross focality Discharge Data Consultations 10/25/20 22:06 ED Decision to Admit Stat 10/29/20 14:28 Consult Psychiatry Routine Procedures Performed XR chest 1V portable HISTORY: 85 years-old Male weakness acute weakness COMPARISON: Chest CT 12/22/2016, PET CT 01/18/2014, chest radiograph 09/12/2013 TECHNIQUE: Portable AP view of the chest FINDINGS: Cardiac silhouette is enlarged. Emphysema. Mild left greater than right bibasilar densities. No pneumothorax, large pleural effusion or overt pulmonary edema. Cholecystectomy. Degenerative changes of the shoulders and spine. IMPRESSION: 1. Cardiac megaly without pulmonary edema. 2. Mild linear left greater than right bibasilar densities suggestive of probable atelectasis. CT head/brain wo con CLINICAL HISTORY: 85 years-old Male with Fall, on coumadin. Acute head injury status post fall TECHNIQUE: Multiple axial CT images of the head were obtained without contrast. A dose lowering technique was utilized adhering to the principles of ALARA. CT DOSE: 537.48 mGy.cm COMPARISON: None. FINDINGS: No acute intracranial hemorrhage, midline shift, intracranial mass, hydrocephalus, territorial ischemia or abnormal extra-axial collection. Age- related involutional changes. White matter hypodensities suggestive of chronic microvascular ischemic disease. Cerebral vascular calcifications. Senescent calcifications of the basal ganglia. No acute calvarial fracture. Postoperative changes of the left lobe. Large left and small right mastoid effusion. The paranasal sinuses appear clear. Prior bilateral cataract repair. IMPRESSION: 1. No acute intracranial abnormality. 2. Left greater than right mastoid effusions. ACT 112: Negative or not required by law. CT abd pelvis wo con CLINICAL INDICATION: MN ^L flank ecchymosis. TECHNIQUE: Helical axial images of the abdomen and pelvis were obtained and displayed at 5 and 1 mm intervals. Automated dose lowering techniques and/or adjustment according to patient size were utilized for this exam. This exam was performed with intravenous contrast. COMPARISON: None available at the time of this dictation. FINDINGS: Evaluation is limited by patient motion and positioning. Lower chest: Thyromegaly is noted. There is calcification about the aortic valve and visualized coronary arteries. Bilateral dependent atelectasis is seen. Liver: Unremarkable. No focal lesions are seen. Gallbladder and biliary tree: Patient is status post cholecystectomy. Bile duct measures 16 mm, unchanged and likely physiologic in this patient status post cholecystectomy. Pancreas: Fatty replacement of the pancreas is seen. Spleen: Unremarkable. Adrenals: Unremarkable. Kidneys and ureters: Nonobstructive nephrolithiasis is noted on the right. There is a left inferior pole cyst measuring 30 mm, decreased from the prior exam. Additional smaller cysts are seen bilaterally. Bowel: A hiatal hernia is seen. Evaluation is limited by motion and streak artifact but there is again suggestion of diverticulosis without evidence of diverticulitis. Lymph nodes Retroperitoneal: Unremarkable. Mesenteric: Subcentimeter lymph nodes are noted. Pelvic: Unremarkable. Bladder: Unremarkable. Reproductive organs: Status post prostatectomy. Peritoneum: Normal Vessels: Atherosclerotic calcifications are seen. Tiny abdominal aortic aneurysm measures 28 x 24 mm, unchanged from prior exam. Abdominal wall: Mild soft tissue stranding in the left flank region likely corresponding to the anastomosis on physical exam. Bones: Degenerative changes in the visualized spine. Bilateral pars defect at L5. IMPRESSION: 1. Mild soft tissue stranding in the left flank without acute fracture or other acute abnormalities. 2. Additional findings as above. ACT 112: Negative or not required by law. Hospital Course (1) Asymptomatic hypertensive urgency: (1) Asymptomatic hypertensive urgency: Plan: Metoprolol was increased to 50 mg daily Blood pressure improved Monitor (2) Lewy body dementia: Plan: Per Dr. Reeder's notes: H/O Lewy body dementia, Delirium present Mild confusion with hallucinations at baseline Zoloft stopped this admission Started on Zyprexa 1.25mg HS Appreciate Psychiatry Input Avoid anticholinergics Calm, cooperative monitor, ff up with Psychiatry as outpatient (3) Fall: Plan: recurrent falls, PT/OT, fall precautions transition to [facility] facility (4) Contusion of flank: Plan: secondary to fall. Improved off coumadin with improving INR. INR 1.6 Continue to hold Coumadin Hemoglobin stable at 14 (5) Supratherapeutic INR: Plan: Per above (6) Acute blood loss anemia: Plan: Secondary to significant ecchymosis of flank. Holding coumadin. Hemoglobin stable at 14 (7) Atrial fibrillation: Plan: patient had 3 recurrent falls recently he has paroxysmal A fib as per [facility] outpatient records CHADsVASC score 3 in light of recurrent falls, may need to discontinue Coumadin as benefits outweigh risk ff up with Technician in 1-2 weeks for further discussion (8) Seizure disorder: Plan: Chronic, stable, continue Keppra per home regimen. (9) Chemotherapy-induced neuropathy: Plan: Continue gabapentin per home regimen. (10) Ambulatory dysfunction: Plan: PT/OT, rehab (11) DVT prophylaxis: Plan: Hold secondary to left leg hematoma Full Code Dispo-to rehab
== END 2020-11-05 15:09 | DRG 305 ==
LOC: 2N 19:10 → ED 19:10 → 2N 23:47 → SUATTDRO 10-26 10:19 → 3W 11-01 13:36